=== PATIENT | female | born 1940 | race Caucasian/White ===

== ENCOUNTER 2019-08-04 10:19 | Outpatient (CLI) | payer MEDICARE, SELFPAY ==
--- NOTE | 2019-08-04 10:31 | USCV_ITS ---
Breana Mendez Age: 78 Gender: F : 1940 Exam Date: 08/04/2019 10:40 Ordering Phys: Godwin Diaz DO Technologist: ALTON MURPHY Exam Location: [facility] [place] Indication: DYSPNEA BP: / HR: 62 Rhythm: Sinus Technical Quality: Technically difficult study MEASUREMENTS (Male / Female) Normal Values 2D ECHO LV Diastolic Diameter PLAX 3.4 cm 4.2 - 5.9 / 3.9 - 5.3 cm LV Systolic Diameter PLAX 1.2 cm IVS Diastolic Thickness 2.1 cm 0.6 - 1.0 / 0.6 - 0.9 cm IVS Systolic Thickness 2.2 cm LVPW Diastolic Thickness 1.4 cm 0.6 - 1.0 / 0.6 - 0.9 cm LVPW Systolic Thickness 2.5 cm LV Ejection Fraction 2D Teich 92.6 % LV Ejection Fraction MOD 2C 50.0 % LV Ejection Fraction 2C AL 52.0 % LA Diameter 4.0 cm LA Width 2.9 cm LA Height 4.3 cm RA Width 2.5 cm RA Height 3.5 cm M-MODE LV Diastolic Diameter MM 5.1 cm 4.2 - 5.9 / 3.9 - 5.3 cm LV Systolic Diameter MM 3.3 cm LV Ejection Fraction MM Teich 62.9 % IVS Diastolic Thickness MM 1.2 cm 0.6 - 1.0 / 0.6 - 0.9 cm IVS Systolic Thickness MM 1.2 cm LVPW Diastolic Thickness MM 1.2 cm 0.6 - 1.0 / 0.6 - 0.9 cm LVPW Systolic Thickness MM 2.2 cm Aortic Annulus Diameter 3.1 cm LA Ao Ratio MM 1.3 MV E Point Septal Separation 0.4 cm DOPPLER AV Peak Velocity 117.0 cm/s LVOT Peak Velocity 91.0 cm/s MV Peak Velocity 111.0 cm/s MV Area PHT 3.1 cm squared Mitral E to A Ratio 0.9 MV E' Velocity 7.0 cm/s Mitral E to MV E' Ratio 12.3 Mitral E to LV E' Lateral Ratio 12.8 Mitral E to LV E' Septal Ratio 11.9 TR Peak Velocity 84.0 cm/s TR Peak Gradient 2.8 mmHg Right Atrial Pressure 3.0 mmHg Pulmonary Artery Systolic Pressu 5.8 mmHg PV Peak Velocity 100.0 cm/s RV Acceleration Time 0.1 s FINDINGS Left Ventricle Normal left ventricular cavity size. Normal left ventricular systolic function. Left ventricular ejection fraction is estimated at 65 %. No diagnostic regional wall motion abnormality could be identified. Normal diastolic function. Right Ventricle Normal right ventricular size and systolic function, RVSP 5.8 mmHg. Right Atrium Normal right atrial size. Right atrial pressure estimated at 3 mmHg. Left Atrium Normal left atrial size. Mitral Valve Structurally normal mitral valve. No mitral valve stenosis. Trace mitral valve regurgitation. Aortic Valve Aortic valve not well visualized. No aortic valve stenosis. No aortic valve regurgitation. Tricuspid Valve Trace tricuspid valve regurgitation. Pulmonic Valve Pulmonic valve not well visualized. Pericardium No pericardial effusion. Aorta Normal-sized aortic root. CONCLUSIONS 1. This is a technically difficult study. 2. Normal left ventricular cavity size and systolic function. Left ventricular ejection fraction is estimated at 65 %. No diagnostic regional wall motion abnormality could be identified. Normal diastolic function. 3. Normal pulmonary artery pressure. 4. No significant valvular abnormality. 5. No prior similar studies to compare. Raysa Laird MD (Electronically Signed) Final Date: 06 Aug 2019 15:23 S
--- NOTE | 2019-08-04 11:03 | XR_ITS ---
WS: [id number] CHEST 2 VIEWS HISTORY: DYSPNEA/SHORTNESS OF BREATH, PALPITATIONS AND EDEMA. COMPARISON: 10/20/2018 Lungs: Mild hyperinflation. No pneumonia. Normal vasculature. Cardiac size: Normal. Mediastinum/Aorta: Large calcified RIGHT paratracheal lymph node. Moderate calcification in the aorti c arch. Bones: Normal. XR/XR chest 2V* [id number] IMPRESSION: 1. Mild emphysema. 2. Moderate atherosclerosis thoracic aorta. 3. No acute cardiopulmonary disease.
== END 2019-08-04 10:20 | disposition home or self-care (01) ==
LOC: RAD 10:22
PROVIDERS: PCP Family Medicine; Visit Provider Family Medicine
DX: R06.02 Shortness of breath (principal); R00.2 Palpitations; R60.9 Edema, unspecified; R06.09 Other forms of dyspnea; J43.9 Emphysema, unspecified; I70.0 Atherosclerosis of aorta
CPT/HCPCS: 71046; 93306

== ENCOUNTER 2020-06-12 14:31 | Outpatient (CLI) | payer MEDICARE, SELFPAY ==
--- NOTE | 2020-06-12 14:47 | XR_ITS ---
WS: [id number] Exam: XR lumbar spine 2-3V* [id number] Date/Time of Exam: 06/12/2020 2:52 PM Reason For Exam: DEGENERATIVE JOINT DISEASE Comparison 01/11/2012. No acute fracture or dislocation. Signs of the limited laminectomy at L4-5 and L5-S1. Facet arthropat hy at all levels. Marked narrowing of the L1-2 and L2-3 intervertebral discs. Spondylosis. Osteopenia . Mild levoscoliosis. DJD of the SI joints. XR/XR lumbar spine 2-3V* [id number] IMPRESSION: 1. Moderately advanced degenerative changes and mild scoliosis. Osteopenia. 2. No acute fracture or malalignment. 3. Status post limited laminectomy at L4-5 and L5-S1.
== END 2020-06-12 14:32 | disposition home or self-care (01) ==
PROVIDERS: PCP Family Medicine; Visit Provider Family Medicine
DX: M99.04 Segmental and somatic dysfunction of sacral region (principal); M47.816 Spondylosis without myelopathy or radiculopathy, lumbar region; M85.88 Other specified disorders of bone density and structure, other site; M96.1 Postlaminectomy syndrome, not elsewhere classified
CPT/HCPCS: 72100

== ENCOUNTER 2020-08-23 10:36 | Outpatient (CLI) | payer MEDICARE, SELFPAY ==
--- NOTE | 2020-08-23 10:50 | XR_ITS ---
WS: [id number] Left shoulder, 2 views, 08/23/2020 Clinical Data: LEFT SHOULDER PAIN Comparison: None. Findings: No fractures or dislocations are seen. The AC joint is normal. The adjacent left clavicle, left scapu la and ribs are normal. The soft tissues are unremarkable. There is osteoarthritic change with irregularity and cyst formation on the left humeral head and also in the adjacent left glenoid fossa. There is a small spur of the lesser tuberosity. Incidentally not ed is a large right calcified peritracheal node. 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
== END 2020-08-23 10:37 | disposition home or self-care (01) ==
PROVIDERS: PCP Family Medicine; Visit Provider Family Medicine
DX: M25.512 Pain in left shoulder (principal); M19.012 Primary osteoarthritis, left shoulder
CPT/HCPCS: 73030

== ENCOUNTER 2020-12-17 07:48 | Outpatient (CLI) | payer MEDICARE, SELFPAY ==
--- NOTE | 2020-12-17 07:54 | MR_ITS ---
WS: [id number] MRI LEFT SHOULDER HISTORY: LT SHOULDER Pain; worsening Function; failed CONSERVATIVE TX COMPARISON: Shoulder radiograph 08/23/2020. TECHNIQUE: Multiplanar sequences of the shoulder joint are submitted. Moderate AC joint hypertrophy with bone and soft tissue encroachment upon the supraspinatus tendon an d muscle. Small amount of fluid in the subacromial and subdeltoid bursa. Mild subacromial impingement . Marked tendinopathy in the distal supraspinatus tendon. There is marked fraying along the bursal and articular surfaces. No definite tear is identified. Distal subscapularis tendon is not visualized. Th ere is a fluid gap within the subscapularis tendon consistent with tear. Subscapularis tendon is also being distorted and displaced by osteophytes and fluid surrounding the humeral head. Very minimal at rophy of the supraspinatus muscle. There is a large amount of fluid in the subscapularis and subacrom ial bursa and also surrounding the humeral head. There are loose bodies and mixed signal within the f luid. Large subchondral cystic changes in the humeral head. Severe narrowing of the glenohumeral join t with osteophytic ridging around the humeral head. Subchondral cystic changes extend into the glenoi d. Humeral head is slightly high riding. Biceps tendon is not identified in the bicipital groove. The re is thickening and increased signal in the biceps tendon. Labrum is diffusely abnormal with intrasu bstance degeneration and fraying and tears. Most significant abnormality in the anterior and posterio r labrum. MR/MR shoulder LT wo con* [id number] IMPRESSION: 1. Severe glenohumeral joint osteoarthritis with loss of joint space and carti jo and high riding humeral head. Extensive degenerative subchondral cystic ch anges on both sides of the glenohumeral joint. 2. Suspect complete tear of the distal subscapularis tendon and marked tendino jorge alberto in the supraspinatus tendon. 3. Subluxed and possibly torn biceps tendon. 4. Moderate AC joint arthritis with mild encroachment upon the supraspinatus.
== END 2020-12-17 07:49 | disposition home or self-care (01) ==
LOC: RADSHAW 07:52
PROVIDERS: PCP Family Medicine; Visit Provider Family Medicine
DX: M25.512 Pain in left shoulder (principal); M19.012 Primary osteoarthritis, left shoulder
CPT/HCPCS: 73221

== ENCOUNTER 2021-03-12 13:15 | Outpatient (CLI) | payer MEDICARE, SELFPAY ==
--- NOTE | 2021-03-12 13:22 | CT_ITS ---
WS: [id number] CT LEFT SHOULDER, NONCONTRAST HISTORY: M19.012 - Primary osteoarthritis, left shoulder Technique: All CT scans at [facility] use at least one of these dose optimization techniques: automated exposure control; mA and/or kV adjustment per patient size (includes targeted exams where dose is matched to clinical indication); or iterative reconstruction. DLP: 1908.99 mGy.cm COMPARISON: Radiographs 08/23/2020. Severe narrowing of the glenohumeral joint space. Subchondral cystic changes and sclerosis on both si jaquan of the joint with osteophytic ridging around the humeral head. Small calcific densities within th e soft tissues from chondrocalcinosis most likely. No fractures. There is a large subchondral cyst in the superior humeral head. There is mild soft tissue thickening and synovitis. Cystic changes extend along the subscapularis tendon. Mild narrowing of the AC joint and hypertrophic bone. There is mild subacromial impingement from the acromion. Small amount calcium in the distal rotator cuff. Calcific deposits along the supraspinatus tendon. Mild supraspinatus atrophy. CT/CT shoulder LT wo con* [id number] IMPRESSION: 1. Severe joint space narrowing with subchondral cysts and bone upon bone at t he glenohumeral joint. 2. Chondrocalcinosis. 3. Mild atrophy supraspinatus muscle with calcific tendinitis. 4. Mild subacromial impingement.
== END 2021-03-12 13:16 | disposition home or self-care (01) ==
LOC: RAD 13:18
PROVIDERS: PCP Family Medicine; Visit Provider Orthopaedic Surgery
DX: M19.012 Primary osteoarthritis, left shoulder (principal); M11.212 Other chondrocalcinosis, left shoulder
CPT/HCPCS: 73200

== ENCOUNTER → 2021-03-24 08:30 | Day surgery (SDC) | payer MEDICARE, SELFPAY | PROVIDERS: PCP Family Medicine; Visit Provider Orthopaedic Surgery | DX: Z01.818 Encounter for other preprocedural examination (principal) | CPT/HCPCS: 93005 ==

== ENCOUNTER → 2021-03-24 | Day surgery (SDC) | payer MEDICARE, SELFPAY ==
[2021-03-24 11:37] VITALS: BMI 37.1
[2021-03-24 12:54] LABS: Basophils # 0.1 10^3/uL (0.0-0.1); Basophils % 0.8 %; Eosinophils # 0.3 10^3/uL (0.0-0.8); Eosinophils % 3.5 %; Hematocrit 42.6 % (37.0-47.0); Hemoglobin 13.7 g/dL (11.5-15.3); Lymphocytes # 1.8 10^3/uL (0.8-4.8); Lymphocytes % 23.4 %; Mean Corpuscular HGB Conc 32.2 g/dL (30.0-36.0); Mean Corpuscular Hemoglobin 30.9 pg (28.0-34.0); Mean Corpuscular Volume 95.9 fl (81-99); Mean Platelet Volume 9.8 fL (7.4-10.4); Monocytes # 0.7 10^3/uL (0.2-0.9); Monocytes % 8.7 %; Neutrophils # 4.94 10^3/uL (1.8-7.7); Neutrophils % 63.3 %; Nucleated Red Blood Cells % 0 %; Platelet Count 315 10^3/cmm (130-400); Red Blood Count 4.44 10^6/uL (4.1-5.3); Red Cell Distribution Width 13.2 % (12.1-15.1); White Blood Count 7.8 10^3/uL (4.0-10.0)
--- NOTE | 2021-03-24 13:53 | ANES.PREANE2 ---
Pre-Anesthetic Assessment Pre-Anesthetic Assessment: Height/Weight: Height 1.57 m Weight 92.079 kg Proposed Procedure: Operation Date: 03/31/21 09:10 Proposed Procedures p Total Shoulder Arthroplasty 35664 M19.012(Left) - Norm Holt MD Was Beta Jun taken within 24 hours: N/A Was Clonidine taken within 24 hours: N/A Social: Social History: No alcohol and No tobacco Packs per day: Former smoker for over 20 years (stop ) Exam: Pre-Anes Outpt Exam: alert, oriented x 3, clear to auscultation bilaterally and regular rate & rhythm Airway: Submandibular: WNL Cervical ROM: WNL MP: 2 Dentition: Full Pulmonary: Pulmonary: LONG CV/HEM: CV/HEM: MO ( I was told I had an MO ) Comments: DLD METS < 4 due to pain : : None reported Hepatic: Hepatic: None reported GI: GI: None reported Metabolic: Metabolic: Thyroid Musc/skel: Musc/skel: None reported Neuropsych: Neuropsych: Anxiety Anesthetic Plan: ASA status: 3 (Obese female, former smoker, with LONG and reduced functional capacity due to pain ) Anesthesia: Anesthesia Evaluation, Eval. for regional block, General and Regional (specify below) Other: Patient declines blood products. Will look further into whether or not she would accept albumin. We discussed risk and benefits of general anesthesia and PNB including risk of stroke, MO, , catastrophic bleeding, nerve injury, pneumothorax, awareness, sore throat, PONV. Patient is aware of risk. She is a DNR. In the perioperative period and intraoperative period she declines chest compressions, will accept cardiovascular medications. In the event she is unable to be extubated after the procedure she wishes us to use her living will to guider her. Risk of > 500 ml blood loss (7ml/kg in children): No Other Pertinent Information: Patient states I am a true red head and states she has woken up twice before with recall of pressure but not pain. PFSH Anesthesia PFSH: Social History Smoking and tobacco status: never smoked Data Anesthesia CBC & Chem 7: 03/24/21 12:02 Other Labs: Laboratory Results - last 48 hr 03/24/21 12:02 WBC 7.8 RBC 4.44 Hgb 13.7 Hct 42.6 MCV 95.9 MCH 30.9 MCHC 32.2 RDW 13.2 Plt Count 315 MPV 9.8 Neut % (Auto) 63.3 Lymph % (Auto) 23.4 [place] % (Auto) 8.7 Eos % (Auto) 3.5 Baso % (Auto) 0.8 Neut # (Auto) 4.94 Lymph # (Auto) 1.8 [place] # (Auto) 0.7 Eos # (Auto) 0.3 Baso # (Auto) 0.1 Nucleated RBC % (auto) 0 Nucleated RBCs # 0.0 Cardiac Studies: Echocardiogram Ultrasound 08/04/19
--- NOTE | 2021-03-24 15:38 | ECG_ITS ---
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 Measurements Intervals [place] Rate: 67 P: -6 KS: 295 QRS: -61 QRSD: 89 T: 47 QT: 392 QTc: 416 Interpretive Statements SINUS RHYTHM WITH FIRST DEGREE AV BLOCK LOW QRS VOLTAGE IN PRECORDIAL LEADS [QRS DEFLECTION < 1.0 mV IN CHEST LEADS] LEFT ANTERIOR FASCICULAR BLOCK [QRS AXIS <= -45, QR IN I, RS IN II] POSSIBLE ANTERIOR MYOCARDIAL INFARCTION , PROBABLY OLD [30 ms Q WAVE IN V3/V4, OR R < 0.2 mV IN V4] No previous ECG available for comparison Electronically Signed On 03-24-2021 20:55:49 [employer] by Little Chu M.D. [id number]
== END ==
PROVIDERS: Anesthesiology; PCP Family Medicine; Visit Provider Orthopaedic Surgery
DX: Z01.818 Encounter for other preprocedural examination (principal)
CPT/HCPCS: 85025

== ENCOUNTER → 2021-03-25 10:56 | Outpatient (BNVA) | payer MEDICARE, SELFPAY | PROVIDERS: PCP Family Medicine; Visit Provider Orthopaedic Surgery | DX: M19.012 Primary osteoarthritis, left shoulder (principal) | CPT/HCPCS: 87635 ==

== ENCOUNTER → 2021-08-13 14:21 | Outpatient (BNVA) | payer MEDICARE, SELFPAY | PROVIDERS: PCP Family Medicine; Referring Provider Clinical Nurse Specialist Adult Health; Visit Provider Orthopaedic Surgery | DX: M16.12 Unilateral primary osteoarthritis, left hip (principal); M19.012 Primary osteoarthritis, left shoulder; M25.552 Pain in left hip | CPT/HCPCS: 73502; 99213 ==

== ENCOUNTER 2021-09-15 09:00 | Observation (INO) | payer MEDICARE, SELFPAY ==
[2021-09-10 08:57] VITALS: BMI 37.1
--- NOTE | 2021-09-10 09:06 | ECG_ITS ---
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 Measurements Intervals [place] Rate: 66 P: -62 NE: 282 QRS: -39 QRSD: 98 T: 53 QT: 394 QTc: 416 Interpretive Statements SINUS RHYTHM WITH FIRST DEGREE AV BLOCK LEFT AXIS DEVIATION [QRS AXIS < -30] LOW QRS VOLTAGE IN PRECORDIAL LEADS [QRS DEFLECTION < 1.0 mV IN CHEST LEADS] INCOMPLETE RIGHT BUNDLE BRANCH BLOCK [90+ ms QRS DURATION, TERMINAL R IN V1/V2, 40+ ms S IN I/aVL/V4/V5/V6] POSSIBLE ANTERIOR MYOCARDIAL INFARCTION , PROBABLY OLD [30 ms Q WAVE IN V3/V4, OR R < 0.2 mV IN V4] Compared to ECG 03/24/2021 11:58:54 Left-axis deviation now present Incomplete right bundle-branch block now present Left anterior fascicular block no longer present Myocardial infarct finding still present Electronically Signed On 09-10-2021 22:29:57 CDT by Raysa Laird M.D. [id number]
[2021-09-10 09:50] LABS: Basophils # 0.1 10^3/uL (0.0-0.1); Eosinophils # 0.3 10^3/uL (0.0-0.8); Eosinophils % 4.6 %; Hematocrit 40.3 % (37.0-47.0); Lymphocytes # 1.9 10^3/uL (0.8-4.8); Lymphocytes % 26.3 %; Mean Corpuscular HGB Conc 32.3 g/dL (30.0-36.0); Mean Corpuscular Hemoglobin 30.3 pg (28.0-34.0); Mean Corpuscular Volume 93.9 fl (81-99); Mean Platelet Volume 9.6 fL (7.4-10.4); Monocytes # 0.6 10^3/uL (0.2-0.9); Monocytes % 8.5 %; Neutrophils # 4.25 10^3/uL (1.8-7.7); Neutrophils % 59.2 %; Nucleated Red Blood Cells % 0 %; Platelet Count 298 10^3/cmm (130-400); Red Blood Count 4.29 10^6/uL (4.1-5.3); Red Cell Distribution Width 13.6 % (12.1-15.1); White Blood Count 7.2 10^3/uL (4.0-10.0)
--- NOTE | 2021-09-10 09:56 | P.ANESASSM_ITS ---
Pre-Anesthetic Assessment Height/Weight: Height 1.57 m Weight 92.079 kg Preop Diagnosis: end stage OA Operation Date: 09/15/21 07:00 Proposed Procedures p Left Total Hip Arthroplasty 29840,M16.12(Left) - Norm Holt MD Familial anesthetic complications: Patient reports hx of waking up during cholecystectomy and hysterectomy Was Beta Jun taken within 24 hours: N/A Was Clonidine taken within 24 hours: N/A Social No alcohol and No tobacco Airway Submandibular: within normal limits Cervical ROM: within normal limits Mallampati: Class II Dentition: false Pulmonary Sleep Apnea (Does not use CPAP d/t discomfort ) Denies hx of COPD, asthma, LONG, SOB CV/HEM Arrythmia (Palpitations per patient, domi afib/aflutter hx, 1st degree AV block on EKG ), Hypertension and Myocardial Infarction (Denies hx of cardiac stents) Denies hx of valvular disease None reported Hepatic None reported GI Gastroesophageal Reflux Disease and None reported Metabolic None reported Musc/skel Osteoarthritis/DJD Hx of DJD of left hip, left shoulder Neuropsych Patient reports hx of stroke with no residual sequelae of unknown cause Anesthetic Plan ASA status: 3 Anesthesia: Anesthesia Evaluation and General Other: We discussed risk and benefits of general vs spinal anesthesia including DVT risk, infection, paralysis/catastrophic nerve injury, back bruising/pain, PDPH, conversion to general in case of spinal, PONV, sore throat (sometimes severe), corneal abrasion, positioning and peripheral nerve injuries, life threatening allergic reaction, post operative ICU admission requiring prolonged intubation, stroke, heart attack, , post operative delirium and/or post operative cognitive decline, and rare incidences of recall (under general anesthesia). Patient would prefer general anesthesia over spinal. She states I have enough problems with my back and don't need any more. Patient consents to general anesthesia. Risk of > 500 ml blood loss (7ml/kg in children): No Medications/Allergies Home Medications Medication Instructions Recorded Confirmed Last Taken Type atorvastatin 20 mg tablet 20 mg PO BEDTIME 01/28/21 09/10/21 Unknown History naproxen 500 mg tablet 500 mg PO BID PRN 01/28/21 09/10/21 Unknown History nitroglycerin 0.4 mg sublingual 0.4 mg SUBLINGUAL Q5M PRN 01/28/21 09/10/21 Unknown History tablet (Nitrostat) levothyroxine 125 mcg tablet 125 mcg PO DAILY 03/24/21 09/10/21 Unknown History (Euthyrox) acetaminophen 650 mg 1,300 mg PO DAILY 09/10/21 09/10/21 Unknown History tablet,extended release amoxicillin 500 mg capsule 500 mg PO BID 09/10/21 09/10/21 Unknown History bilberry fruit 1,000 mg capsule 1 g PO DAILY 09/10/21 09/10/21 Unknown History cholecalciferol (vitamin D3) 125 125 mcg PO DAILY 09/10/21 09/10/21 Unknown History mcg (5,000 unit) tablet (Vitamin D3) docusate sodium 100 mg tablet 100 mg PO BID 09/10/21 09/10/21 Unknown History glucosamine sulf dipot 1 cap PO BID 09/10/21 09/10/21 Unknown History chlr,msm,chond 550 mg-C 30 mg-matthias 1 mg capsule (Glucosamine Chondroitin) [id number] 1 tab PO DAILY 09/10/21 09/10/21 Unknown History tablet (Multivitamin 50 Plus) Allergies Allergy/AdvReac Type Severity Reaction Status Date / Time Sulfa (Sulfonamide Allergy Unknown Unknown Verified 08/13/21 14:32 Antibiotics) Tetanus Vaccines and Toxoid Allergy Unknown Unknown Verified 08/13/21 14:32 [facility] Anesthesia Medical History (Updated 09/10/21 @ 09:58 by Sindey Harrington DO) Myocardial infarction MANOLO (obstructive sleep apnea) Surgical History (Updated 09/10/21 @ 10:00 by Sidney Harrington DO) H/O: hysterectomy Reports waking up during surgery History of cholecystectomy Open incision Reports waking up during surgery Social History (Updated 09/10/21 @ 10:01 by Sidney Harrington DO) Smoking and tobacco status: former smoker Data Anesthesia : 09/10/21 09:23 09/10/21 09:23 Short CBC 09/10/21 Range/Units 09:23 WBC 7.2 (4.0-10.0) 10^3/uL Hgb 13.0 (11.5-15.3) g/dL Hct 40.3 (37.0-47.0) % MCV 93.9 (81-99) fl Plt Count 298 (130-400) 10^3/cmm Neut % (Auto) 59.2 % Neut # (Auto) 4.25 (1.8-7.7) 10^3/uL Cardiac Studies: Echocardiogram Ultrasound 08/04/19
[2021-09-10 10:12] LABS: Anion Gap 13.1 (5-19); Blood Urea Nitrogen 20 mg/dL (8-23); Calcium 9.8 mg/dL (8.5-10.5); Carbon Dioxide 26 mmol/L (22-29); Chloride 102 mmol/L (98-107); Creatinine Clr Calc Pharmacy 58.2398; Glucose 106 mg/dL (65-115); Osmolality Calculated 287 mOsm/kg (285-295); Potassium 4.1 mmol/L (3.5-5.1); Sodium 137 mmol/L (136-145)
[2021-09-15] VITALS (26 sets, daily range): BP systolic 103–218; BP diastolic 48–96; PULSE 51–98; RESP 13–18; TEMP 36–36.7; O2SAT 91–97; BMI 37.1
--- NOTE | 2021-09-15 06:39 | P.ANESUD_ITS ---
Pre-Anesthetic Update Pre-Anesthetic Assessment: Date of Surgery/Procedure: 09/15/21 Preop Keri gnosis: Osteoarthritis Left shoulder Proposed Procedure: Operation Date: 09/15/21 07:00 Proposed Procedures p Left Total Hip Arthroplasty 73651,M16.12(Left) - Norm Holt MD Any changes to Pre-Anesthetic Assessment?: No Last Intake: > 8hrs Vitals: Temperature 96.8 F L 09/15/21 06:29 Temperature Source Temporal Artery S can 09/15/21 06:29 Pulse Rate 70 09/15/21 06:29 Respiratory Rate 18 09/15/21 06:29 Blood Pressure 218/96 09/15/21 06:29 Blood Pressure Yani n 136 09/15/21 06:29 Pulse Oximetry 96 09/15/21 06:29 Oxygen Delivery Me thod 09/15/21 06:29 Exam: Pre-Anes Outpt Exam: alert, oriented x 3, clear to auscultation bilaterally and regular rate & rhythm Cardiac Studies: 2 Echocardiogram Ultrasound 08/04/19
[2021-09-15] MEDS: acetaminophen 500 mg Tablet 1000 MG PO ×3 (06:52→18:27)
[2021-09-15] MEDS: CELEcoxib 200 mg Capsule 400 MG PO (06:52)
[2021-09-15] MEDS: oxyCODONE 20 mg ER (12 HR) Tablet PO (06:53)
[2021-09-15] MEDS: sodium chloride 0.9% 1,000 ML 30 ML IV (07:00)
--- NOTE | 2021-09-15 07:05 | W.PM.OPSFHP ---
Same Day Surgery H&P Indication for Procedure/HPI DATE OF PROCEDURE: September 15, 2021 CHIEF COMPLAINT/INDICATIONFOR SURGICAL PROCEDURE: Osteoarthritis left hip here for left total hip arthroplasty PREOP DIAGNOSIS: Osteoarthritis Left hip PLANNED PROCEDURE: Operation Date: 09/15/21 07:00 Proposed Procedures p Left Total Hip Arthroplasty 99367,M16.12(Left) - Norm Holt MD 80-year-old female with left hip pain attributed to osteoarthritis. Unsuccessfully medically managed with anti-inflammatories. Here for elective left total hip arthroplasty Medications/Allergies* Home Medications Medication Instructions Recorded Confirmed Type atorvastatin 20 mg tablet 20 mg PO BEDTIME 01/28/21 09/15/21 History naproxen 500 mg tablet 500 mg PO BID PRN 01/28/21 09/15/21 History nitroglycerin 0.4 mg sublingual 0.4 mg SUBLINGUAL Q5M PRN 01/28/21 09/15/21 History tablet (Nitrostat) levothyroxine 125 mcg tablet 125 mcg PO DAILY 03/24/21 09/15/21 History (Euthyrox) acetaminophen 650 mg 1,300 mg PO DAILY 09/10/21 09/15/21 History tablet,extended release amoxicillin 500 mg capsule 500 mg PO BID 09/10/21 09/15/21 History bilberry fruit 1,000 mg capsule 1 g PO DAILY 09/10/21 09/15/21 History cholecalciferol (vitamin D3) 125 125 mcg PO DAILY 09/10/21 09/15/21 History mcg (5,000 unit) tablet (Vitamin D3) docusate sodium 100 mg tablet 100 mg PO BID 09/10/21 09/15/21 History glucosamine sulf dipot 1 cap PO BID 09/10/21 09/15/21 History chlr,msm,chond 550 mg-C 30 mg-matthias 1 mg capsule (Glucosamine Chondroitin) [id number]-[id number] 1 tab PO DAILY 09/10/21 09/15/21 History tablet (Multivitamin 50 Plus) Allergies/Adverse Reactions Allergy/AdvReac Type Severity Reaction Status Date / Time Sulfa (Sulfonamide Allergy Unknown Unknown Verified 09/15/21 06:29 Antibiotics) Tetanus Vaccines and Toxoid Allergy Unknown Unknown Verified 09/15/21 06:29 Current Medications: Generic Name Dose Route Start Last Admin Trade Name Freq PRN Reason Stop Dose Admin Sodium Chloride 1,000 mls @ 30 mls/hr 09/15/21 06:15 09/15/21 07:00 Sodium Chloride 0.9% IV 09/16/21 06:14 30 mls/hr .Q24H CRISTAL Administration Pertinent History/Comorbid Conditions* Medical History (Updated 09/10/21 @ 09:58 by Sidney Harrington DO) Myocardial infarction MANOLO (obstructive sleep apnea) Surgical History (Updated 09/10/21 @ 10:00 by Sidney Harrington DO) H/O: hysterectomy Reports waking up during surgery History of cholecystectomy Open incision Reports waking up during surgery Social History Smoking and tobacco status: never smoked Pertinent Exam Findings alert, oriented x 3, clear to auscultation bilaterally, regular rate & rhythm and operative site marked Recommendations Surgery/Procedure today Coding Level of Care Code 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
[2021-09-15] MEDS: tranexamic acid 1,000 mg/10mL SDV 1000 MG IV (07:25)
[2021-09-15] MEDS: sodium chloride 0.9% 100 mL Bag XX (08:02)
--- NOTE | 2021-09-15 09:44 | XR_ITS ---
WS: [id number] XR hip LT 1V wo/w [place] [id number] REASON FOR EXAM: Left total hip FINDINGS: Total left hip arthroplasty. No bony abnormality. No significant soft tissue abnormality. XR/XR hip LT 1V wo/w pel [id number] IMPRESSION: Total left hip arthroplasty without abnormality.
--- NOTE | 2021-09-15 09:49 | P.OP_ITS ---
Operative Report Date of procedure: September 15, 2021 Pre-op diagnosis: Preop Diagnosis Osteoarthritis Left hip Post-op diagnosis: same Post-op diagnosis: Same Procedure done: Left total hip arthroplasty Implants: 1) [employer] 54 mm Trident 2 solid back acetabular shell 2) Size 4 [employer] 127 degree neck angle Accolade cemented stem 3} 28mm -4 mm standard ceramic femoral head 4} MDM metal liner Pathology: none sent Surgeon: Norm Holt Anesthesia: General Estimated blood loss (mL): 200 Findings: Patient had eburnated bone over the superior femoral head and acetabulum Condition: stable Disposition: PACU Procedure: The patient was taken to the operating room and anesthesia provided by the anesthesia service. The patient was placed in the lateral position on a pe gboard. A timeout was performed. The patient was draped in the usual fashion. A 15 cm long incision was made beginning just proximal to the greater trochanter and extending posteriorly to a point just distal to the trochanter on the posterior border of the trochanter. Dissection was carried down with electrocautery through the subcutaneous fat to the fascia juanjose which was divided proximally and distally with curved scissors. The anterior two thirds of the gluteus medius and minimus were elevated off the hip with electrocautery. The capsule was divided in a H-like fashion. The hip was dislocated and a neck cut made just above the level of the lesser trochanter. Exposure of the acetabulum was facilitated with the acetabular retractors. Remnants of labrum and peripheral osteophytes were removed with electrocautery and a rongeur. A reamer 2 mm under the size the femoral head was utilized to ream medially to the base of the palm and are. Reaming was then increased in 1 mm intervals until a healthy rim a trabecular bone was encountered. The rim was touched with the reamer the size of the final acetabular shell to be placed. A final Trident 2 acetabular cup of the same size as the final reaming was press- fit into place. The ADM liner was secured. Attention was then focused on the femur. The canal was localized with a canal finder. Broaching was then accomplished until we feel was identified in the proximal femur. The canal was cleaned with pulsatile lavage. A distal cement restrictor was placed. The stem was then press-fit into place. A trial reduction with the head and neck provided excellent stability. The wound was irrigated with saline and antibiotic solution. The final Wendy Accolade II cemented stem was press-fit into place. The femoral head was placed and the hip was reduced. The hip was brought through range of motion and found to be free of impingement and stable. The anterior capsule was reapproximated with 1 Ethibond. The gluteus medius and minimus were repaired through bone with 5 Ethibond and reinforced with 1 Ethibond. The fascial juanjose was closed with a running 0 Stratafix suture. Deep pelvic tissues were closed with 2-0 Stratafix and the skin with a running 4-0 l Stratafix. The skin was covered with a Prineo dressing and op site dressings.
[2021-09-15] MEDS: fentaNYL 50 mcg/mL INJ 2mL IVP ×2 (09:55→10:08)
[2021-09-15] MEDS: HYDROmorphone 1 mg/mL INJ 1 mL 0.5 MG IVP (10:22)
[2021-09-15] MEDS: oxyCODONE 5 mg IR Tab/Cap PO ×3 (11:36→20:06)
[2021-09-15] MEDS: sodium chloride 0.9% 1,000 ML 100 ML IV ×2 (11:37→23:54)
[2021-09-15] MEDS: CELEcoxib 200 mg Capsule PO ×2 (11:37→22:24)
--- NOTE | 2021-09-15 15:58 | ANE.PACU2 ---
Inpatient post-anesthesia follow up: Airway intact: Yes Vital signs: Temperature 98.0 F Pulse Rate 72 Respiratory Rate 16 Blood Pressure 169/81 Pulse Oximetry 94 Oxygen Delivery Me thod Nasal Cannula Oxygen Flow Rate 2 Fraction of Inspir ed Oxygen Hydration adequate: Yes Nausea and vomiting: No Pain level: 2 Mental status: Baseline
[2021-09-15] MEDS: docusate sodium 100 mg Capsule PO (18:27)
[2021-09-15] MEDS: atorvastatin 40 mg Tablet 20 MG PO (20:06)
[2021-09-16] VITALS (9 sets, daily range): BP systolic 115–172; BP diastolic 66–87; PULSE 58–83; RESP 16–18; TEMP 36.5–36.8; O2SAT 91–95
[2021-09-16] MEDS: acetaminophen 500 mg Tablet 1000 MG PO ×3 (03:13→18:45)
[2021-09-16 03:42] LABS: Hemoglobin 11.2 g/dL (11.5-15.3)
[2021-09-16] MEDS: aspirin 325 mg EC Tablet PO (08:53)
[2021-09-16] MEDS: oxyCODONE 5 mg IR Tab/Cap PO ×3 (08:53→18:45)
[2021-09-16] MEDS: docusate sodium 100 mg Capsule PO ×2 (08:53→17:32)
[2021-09-16] MEDS: sodium chloride 0.9% 1,000 ML 100 ML IV (08:54)
[2021-09-16] MEDS: levothyroxine 125 mcg Tablet PO (08:54)
[2021-09-16] MEDS: CELEcoxib 200 mg Capsule PO ×2 (11:11→23:12)
--- NOTE | 2021-09-16 12:02 | PC.CHAP ---
Pastoral Care Encounter/Spiritual Assessment Type of Contact [] Declined technical assistance consultant visit [] Patient/Family/Request visit [] Outpatient visit [] Follow-up visit [] Physician referral [] Code/Alert [x] Routine visit [] Staff referral [] Actively dying [] Patient sleeping [] Family support [] [] Out of room [] Palliative care [] [] Receiving care in room [] Pre-surgical visit [] Trauma [] Long length of stay [] ICU visit [] Other: Relational/Emotional Strength [x] Patient feels connected with others/family/visitors/staff [] Distress [] Loneliness/isolation [] Abandonment Spirituality of Patient [x] Person of [place] [x] Attends Taoist of their [place] [x] Believes in Prayer [x] Reads Bible or Christian materials [] There are Spiritual issues to be addressed Inserting Machine Operator Interventions [x] Prayer [x] Active listening x[] Non-anxious presence [x] Spiritual/emotional support [] Crisis/trauma care [] Spiritual counseling [] Bereavement support [] Provided bereavement packet [] Provided Bible/devotional materials [] Provided toy/stuffed animal, coloring book to patient or family member [] Provided Communion [] Anointing/[place] [] Salvation [x] Completed spiritual assessment [] Other: Impact on Illness or Injury [] Angry [] Fearful [] Anxious [] Often cries [] Exhaustion [] Unable to work [] Unable to attend religious [] Unable to walk/stand [] Unable to read [] Unable to drive [] Unable to eat/drink [] Unable to sleep [] Unable to be with family [] Patient intubated [] Other: Summary Time spent with patient 10 min
--- NOTE | 2021-09-16 16:57 | P.PN_ITS ---
Subjective Subjective: Patient with expected pain. Passing urine. Slow progress with therapy. Vitals/I&O/Wt Last Vital Signs Temp 97.7 F 09/16/21 16:00 Pulse 62 09/16/21 16:00 Resp 16 09/16/21 16:00 BP 172/87 09/16/21 16:00 Pulse Ox 94 09/16/21 16:00 09/16/21 09/16/21 09/16/21 06:59 14:59 22:59 Intake Total 50 / 3730 1380 / 1380 1000 / 2380 Output Total 425 / 1025 250 / 250 Balance -375 / 2705 1130 / 1130 1000 / 2130 Weight last 48 hrs Weight 203 lb Physical Exam Narrative: Left hip incision clean and dry. Minimal swelling Urinary Catheter Management: Ferguson: Cath Placed During This Visit: yes, but has since been removed by the nurse Reason for Continuing Indwelling Catheter: Perioperative Use in Selected Surgeries Urinary Catheter Date of Insertion: 09/15/21 Urinary Catheter Time of Insertion: 07:20 Date Urinary Catheter Removed: 09/16/21 Time Urinary Catheter Discontinued: 06:30 Data : 09/16/21 02:40 09/10/21 09:23 A&P Assessment and plan (1) Status post left hip replacement: Breana has progressed slowly with therapy. We will plan on 1 more day of therapy anticipate discharge tomorrow Status: Acute (2) Osteoarthritis of left hip: Status: Resolved Attestations Medical Necessity Statement*: Slow progress with therapy. Anticipate discharge tomorrow Coding Level of Care Code Acute Continuous Wave Operator for [facility] Diagnoses Status post left hip replacement Z96.642 Osteoarthritis of left hip M16.12
[2021-09-16] MEDS: atorvastatin 40 mg Tablet 20 MG PO (20:18)
[2021-09-17] VITALS: BP 128/69; PULSE 67; RESP 18; TEMP 37; O2SAT 93
[2021-09-17 02:42] VITALS: RESP 18
[2021-09-17] MEDS: acetaminophen 500 mg Tablet 1000 MG PO (02:42)
[2021-09-17] MEDS: oxyCODONE 5 mg IR Tab/Cap PO ×2 (02:42→07:41)
[2021-09-17 04:00] VITALS: BP 144/74; PULSE 74; RESP 18; TEMP 37; O2SAT 98
[2021-09-17] MEDS: aspirin 325 mg EC Tablet PO (07:40)
[2021-09-17 07:41] VITALS: RESP 16
[2021-09-17] MEDS: levothyroxine 125 mcg Tablet PO (07:41)
[2021-09-17] MEDS: docusate sodium 100 mg Capsule PO (07:41)
[2021-09-17 08:16] VITALS: BP 173/77; PULSE 69; RESP 17; TEMP 36.6; O2SAT 90
--- NOTE | 2021-09-17 10:08 | PM.DCS ---
Discharge Providers Date of Admission: 09/15/21 09:00 Date of Discharge: September 17, 2021 Attending Provider at Admission: Norm Bourne MD Attending Provider at Discharge: Norm Bourne MD Primary Care Provider: Godwin Diaz DO Diagnoses at Discharge Discharge Diagnosis (1) Status post left hip replacement: Status: Acute (2) Osteoarthritis of left hip: Status: Resolved Reason for Visit Reason for Visit: Brief History: Breana is an 80-year-old female with progressive left hip pain due to osteoarthritis in the left hip. She was admitted for left total hip arthroplasty Hospital Course Hospital Course The patient tolerated surgery well. They remained hemodynamically stable. They was begun on aspirin and nitro compressing dressing for DVT prophylaxis. She was slow to regain ambulatory status with therapy the patient was mobilized with therapy beginning the day of surgery and by the second postoperative day independent with the walker. As the pain was adequately controlled and they were fully mobile they were discharged home. Physical Exam Narrative: On the day of discharge the hip incision was clean. The incision was free of drainage. They had no particular swelling about the thigh or distal. No distal neurovascular deficits were noted. Urinary Catheter Management: Ferguson: Cath Placed During This Visit: yes, but has since been removed by the nurse Reason for Continuing Indwelling Catheter: Not indwelling catheter Urinary Catheter Date of Insertion: 09/15/21 Urinary Catheter Time of Insertion: 07:20 Date Urinary Catheter Removed: 09/16/21 Time Urinary Catheter Discontinued: 06:30 Discharge Data Studies Completed and Pending Completed Studies During Hospitalization Category Date Time Status XR hip LT 1V wo/w pel 14052 Routine Exams 09/15/21 09:44 Completed Radiology Impressions Hip X-Ray 09/15/21 09:44 IMPRESSION: Total left hip arthroplasty without abnormality. Laboratory Results WBC 7.2 10^3/uL (4.0-10.0) 09/10/21 09:23 RBC 4.29 10^6/uL (4.1-5.3) 09/10/21 09:23 Hgb 11.2 g/dL (11.5-15.3) L 09/16/21 02:40 Hct 40.3 % (37.0-47.0) 09/10/21 09:23 MCV 93.9 fl (81-99) 09/10/21 09:23 MCH 30.3 pg (28.0-34.0) 09/10/21 09: MCHC 32.3 g/dL (30.0-36.0) 09/10/21: RDW 13.6 % (12.1-15.1) 09/10/21 09: Plt Count 298 10^3/cmm (130-400) 09/10/21 09: MPV 9.6 fL (7.4-10.4) 09/10/21: Neut % (Auto) 59.2 % 09/10/21 09: Lymph % (Auto) 26.3 % 09/10/21 09: Coos % (Auto) 8.5 % 09/10/21 09: Eos % (Auto) 4.6 % 09/10/21: Baso % (Auto) 1.0 % 09/10/21: Neut # (Auto) 4.25 10^3/uL (1.8-7.7) 09/10/21: Lymph # (Auto) 1.9 10^3/uL (0.8-4.8) 09/10/21: Coos # (Auto) 0.6 10^3/uL (0.2-0.9) 09/10/21: Eos # (Auto) 0.3 10^3/uL (0.0-0.8) 09/10/21: Baso # (Auto) 0.1 10^3/uL (0.0-0.1) 09/10/21: Nucleated RBC % (auto) 0 % 09/10/21: Nucleated RBCs # 0.0 /100WBC 09/10/21 09: Sodium 137 mmol/L (136-145) 09/10/21 09: Potassium 4.1 mmol/L (3.5-5.1) 09/10/21: Chloride 102 mmol/L (98-107) 09/10/21 09: Carbon Dioxide 26 mmol/L (22-29) 09/10/21: Anion Gap 13.1 (5-19) 09/10/21 09: BUN 20 mg/dL (8-23) 09/10/21 09: Creatinine 0.8 mg/dL (0.5-0.9) 09/10/21 09:23 GFR Calculation Not Reportable 09/10/21 09:23 Glucose 106 mg/dL (65-115) 09/10/21 09:23 Calculated Osmolality 287 mOsm/kg (285-295) 09/10/21 09:23 Calcium 9.8 mg/dL (8.5-10.5) 09/10/21 09:23 Vitals Last Vital Signs Temp 97.9 F 09/17/21 08:16 Pulse 69 09/17/21 08:16 Resp 17 09/17/21 08:16 BP 173/77 09/17/21 08:16 Pulse Ox 90 09/17/21 08:16 Discharge Plan Discharge Patient Disposition: Home Condition: Stable Prescriptions: New oxycodone 5 mg Tablet 5 mg PO Q4H PRN (Reason: Moderate Pain) 7 Days Qty: 30 0RF aspirin 325 mg Tablet,Delayed Release (Dr/Ec) 325 mg PO DAILY 30 Days Qty: 30 0RF celecoxib 200 mg Capsule 200 mg PO Q12H 14 Days Qty: 28 0RF acetaminophen 500 mg Tablet 1,000 mg PO Q8H 14 Days Qty: 84 0RF Continued atorvastatin 20 mg tablet 20 mg PO BEDTIME 0RF nitroglycerin [Nitrostat] 0.4 mg tablet, sublingual 0.4 mg sublingual Q5M PRN (Reason: chest pain) 0RF Rx Instructions: do not exceed 3 doses per episode levothyroxine [Euthyrox] 125 mcg tablet 125 mcg PO DAILY 0RF amoxicillin 500 mg Capsule 500 mg PO BID 0RF docusate sodium 100 mg Tablet 100 mg PO BID 0RF Multivitamin 50 Plus Tablet 1 tab PO DAILY 0RF bilberry fruit 1,000 mg Capsule 1 g PO DAILY 0RF cholecalciferol (vitamin D3) [Vitamin D3] 125 mcg (5,000 unit) Tablet 125 mcg PO DAILY 0RF Glucosamine Chondroitin 550-30-1 mg Capsule 1 cap PO BID 0RF Discontinued naproxen 500 mg tablet 500 mg PO BID PRN (Reason: Pain) 0RF acetaminophen [Tylenol Arthritis] 650 mg Tablet Extended Release 1,300 mg PO DAILY 0RF Discharge Orders: Discharge Order (Routine); Ordered 09/17/21 Ordered By: Norm Bourne Other Ambulatory Orders: Physical Therapy Eval and Treat Outpatient (Order) Timeframe: 3 Days Facility: [facility] - Location: Physical Therapy Ordered By: Norm Bourne Referrals: Simeon Hsu FNP [Physician Underliner] - 09/19/21 9:15 am Discharge Diet: Advance as tolerated Discharge Activity: Limit activity as instructed Patient Instructions: Opioid Safety Activity Restrictions/Additional Instructions: Okay to shower. No soaking incision in tub Apply FirstIce up to 20 min/hr for pain and swelling Take Celebrex twice a day for the next 15 days for pain , discontinue other anti-inflammatories Take Tylenol 500mg (up to 2 tabs) 3 times a day for mild pain Take oxycodone for breakthrough pain. Exercises per physical therapy. May weight-bear as tolerated on total hip arthroplasty IF HAVE ANY PROBLEMS OR QUESTIONS CALL [facility] AT AND ASK TO HAVE DR. BOURNE PAGED. Discharge Attestations Time Spent in Discharge Care*: other Quality Metrics Clinical Quality Measures [ No reported AMI, CVA or VTE this stay] Coding Level of Care Code Acute [facility] note Diagnoses Status post left hip replacement Z96.642 Osteoarthritis of left hip M16.12
[2021-09-17 10:40] VITALS: BP 173/77; PULSE 69; RESP 17; TEMP 36.6; O2SAT 90
== END 2021-09-17 11:07 | disposition home or self-care (01) ==
LOC: MEDSURG 09-16 02:25
PROVIDERS: Anesthesiology; Admitting Provider Orthopaedic Surgery; PCP Family Medicine; Visit Provider Orthopaedic Surgery
PROC: (CPT 27130; principal; 2021-09-15 07:00)
DX: M16.12 Unilateral primary osteoarthritis, left hip (principal); G47.33 Obstructive sleep apnea (adult) (pediatric); I25.2 Old myocardial infarction; K21.9 Gastro-esophageal reflux disease without esophagitis; Z87.891 Personal history of nicotine dependence
CPT/HCPCS: 27130; 36415; 51702; 73501; 80048; 85018; 85025; 93005; 97110; 97116; 97161; 97166; 97530; C1713; C1776; G0378; J1100; J1170; J1580; J2270; J2370; J2405; J2704; J2710; J3010; J3490; J7030

== ENCOUNTER → 2021-09-23 10:49 | Outpatient (BNVA) | payer MEDICARE, SELFPAY | PROVIDERS: PCP Family Medicine; Visit Provider Nurse Practitioner Family | DX: Z96.642 Presence of left artificial hip joint (principal) | CPT/HCPCS: 99024 ==

== ENCOUNTER 2021-09-25 06:00 | Outpatient (RCR) | payer MEDICARE, SELFPAY | END 2021-10-19 23:59 | disposition home or self-care (01) | LOC: SPT 06:00 | PROVIDERS: PCP Family Medicine; Referring Provider Orthopaedic Surgery; Visit Provider Orthopaedic Surgery | DX: Z47.1 Aftercare following joint replacement surgery (principal); Z96.642 Presence of left artificial hip joint | CPT/HCPCS: 97110; 97116; 97161 ==

== ENCOUNTER → 2021-10-01 10:16 | Outpatient (BNVA) | payer MEDICARE, SELFPAY | PROVIDERS: PCP Family Medicine; Visit Provider Nurse Practitioner Family | DX: Z96.642 Presence of left artificial hip joint (principal) | CPT/HCPCS: 73502; 99024 ==

== ENCOUNTER → 2021-10-14 10:47 | Outpatient (BNVA) | payer MEDICARE, SELFPAY | PROVIDERS: PCP Family Medicine; Visit Provider Orthopaedic Surgery | DX: Z96.642 Presence of left artificial hip joint (principal) | CPT/HCPCS: 73502; 99024 ==

== ENCOUNTER 2021-10-20 06:00 | Outpatient (RCR) | payer MEDICARE, SELFPAY | END 2021-11-19 23:59 | disposition home or self-care (01) | LOC: SPT 06:00 | PROVIDERS: PCP Family Medicine; Referring Provider Orthopaedic Surgery; Visit Provider Orthopaedic Surgery | DX: Z96.642 Presence of left artificial hip joint (principal) | CPT/HCPCS: 97110 ==

== ENCOUNTER → 2022-03-20 09:24 | Outpatient (BNVA) | payer MEDICARE, SELFPAY | PROVIDERS: PCP Family Medicine; Visit Provider Clinical Nurse Specialist Adult Health | DX: R19.5 Other fecal abnormalities (principal); B34.9 Viral infection, unspecified | CPT/HCPCS: 80053; 85025 ==

== ENCOUNTER 2022-07-20 10:25 | Outpatient (CLI) | payer MEDICARE, SELFPAY ==
--- NOTE | 2022-07-20 10:41 | XR_ITS ---
WS: [id number] XR cervical spine 3V* [id number] REASON FOR EXAM: M54.2 - Cervicalgia FINDINGS: Straightening of the normal lordosis of the cervical spine. No fracture of the cervical vertebrae or other odontoid identified. Severe narrowing of the intervertebral disc spaces at C4-C7. Large anterior osteophytes and moderate uncinate 8 osteophytes through this same segment. No significant listhesis identified. XR/XR cervical spine 3V* [id number] IMPRESSION: Degenerative spondylosis of the cervical spine as above. The findings have mode rately progressed compared to 04/28/2011.
== END 2022-07-20 10:26 | disposition home or self-care (01) ==
LOC: RAD 10:31
PROVIDERS: PCP Family Medicine; Visit Provider Family Medicine
DX: M19.90 Unspecified osteoarthritis, unspecified site (principal); M54.2 Cervicalgia; M47.892 Other spondylosis, cervical region
CPT/HCPCS: 72040

== ENCOUNTER → 2022-08-04 12:34 | Outpatient (BNVA) | payer MEDICARE, SELFPAY | PROVIDERS: PCP Family Medicine; Visit Provider Internal Medicine | DX: R00.2 Palpitations (principal); I44.0 Atrioventricular block, first degree; R00.0 Tachycardia, unspecified; R00.1 Bradycardia, unspecified | CPT/HCPCS: 93270 ==

== ENCOUNTER → 2022-08-12 10:09 | Outpatient (BNVA) | payer MEDICARE, SELFPAY | PROVIDERS: PCP Family Medicine; Visit Provider Orthopaedic Surgery | DX: M17.11 Unilateral primary osteoarthritis, right knee (principal) | CPT/HCPCS: 20610; 73560; 73565; 99213; J0702; J3490 ==

== ENCOUNTER → 2022-11-10 09:36 | Outpatient (BNVA) | payer MEDICARE, SELFPAY | PROVIDERS: PCP Family Medicine; Visit Provider Family Medicine | DX: F32.A Depression, unspecified (principal); I10 Essential (primary) hypertension; M19.90 Unspecified osteoarthritis, unspecified site; Z13.6 Encounter for screening for cardiovascular disorders | CPT/HCPCS: 80053; 80061; 85025 ==

== ENCOUNTER → 2023-04-09 09:02 | Outpatient (BNVA) | payer MEDICARE, MEDICAID, SELFPAY | PROVIDERS: PCP Family Medicine; Visit Provider Physician Assistant | DX: M17.0 Bilateral primary osteoarthritis of knee (principal) | CPT/HCPCS: 20610; 73560; 73565; 99213; J3301 ==

== ENCOUNTER → 2023-04-19 11:30 | Outpatient (BNVA) | payer MEDICARE, MEDICAID, SELFPAY | PROVIDERS: PCP Family Medicine; Visit Provider Family Medicine | DX: I10 Essential (primary) hypertension (principal); M19.90 Unspecified osteoarthritis, unspecified site; E05.90 Thyrotoxicosis, unspecified without thyrotoxic crisis or storm; E03.9 Hypothyroidism, unspecified | CPT/HCPCS: 80053; 84443; 85025 ==

== ENCOUNTER → 2023-08-12 10:01 | Outpatient (BNVA) | payer BC, MEDICAID, SELFPAY | PROVIDERS: PCP Family Medicine; Visit Provider Physician Assistant | DX: M19.012 Primary osteoarthritis, left shoulder (principal) | CPT/HCPCS: 73030 ==

== ENCOUNTER → 2023-10-26 09:08 | Outpatient (BNVA) | payer MEDICARE, MEDICAID, SELFPAY | PROVIDERS: PCP Family Medicine; Visit Provider Physician Assistant | DX: M17.0 Bilateral primary osteoarthritis of knee (principal) | CPT/HCPCS: 20610; 99213 ==

== ENCOUNTER → 2023-11-16 08:25 | Outpatient (BNVA) | payer MEDICARE, MEDICAID, SELFPAY | PROVIDERS: PCP Family Medicine; Visit Provider Physician Assistant | DX: M19.012 Primary osteoarthritis, left shoulder (principal) | CPT/HCPCS: 20610; 73030; 99213; J3301 ==

== ENCOUNTER 2023-11-23 14:14 | Emergency (ER) | payer MEDICARE, MEDICAID, SELFPAY ==
[2023-11-23 14:24] VITALS: BP 106/66; PULSE 84; TEMP 36.7; O2SAT 95; BMI 35.2
[2023-11-23 14:49] LABS: Hematocrit 37.4 % (36-47); Mean Corpuscular HGB Conc 32.1 g/dL (30-55); Mean Corpuscular Hemoglobin 30.8 pg (27-33); Mean Corpuscular Volume 95.9 fl (85-98); Mean Platelet Volume 8.9 fL (7.4-10.4); Platelet Count 391 10^3/cmm (157-399); White Blood Count 11.59 10^3/uL (3.29-11.43)
[2023-11-23 15:09] LABS: Alanine Aminotransferase 21 U/L (0-33); Albumin Level 3.7 g/dL (3.5-5.2); Alkaline Phosphatase 114 U/L (35-105); Aspartate Amino Transferase 15 U/L (0-32); Blood Urea Nitrogen 32 mg/dL (8-23); Calcium 9.5 mg/dL (8.5-10.5); Carbon Dioxide 23 mmol/L (22-29); Chloride 102 mmol/L (98-107); Creatinine Clr Calc Pharmacy 43.6723; Globulin 3.1 g/dL (1.3-4.6); Glucose 91 mg/dL (65-115); Lipase 28 U/L (13-60); Osmolality Calculated 290 mOsm/kg (285-295); Sodium 137 mmol/L (136-145); Total Bilirubin 0.2 mg/dL (0.15-1.2); Total Protein 6.8 g/dL (6.6-8.7)
[2023-11-23 15:10] LABS: INR 0.96 (0.8-1.2)
[2023-11-23 15:13] LABS: Anion Gap 16.2 (5-19); Potassium 4.2 mmol/L (3.5-5.1)
[2023-11-23 15:33] LABS: Absolute Eosinophils 0.6 10^3/cmm (0.0-0.7); Absolute Segmented Neutrophil 7.9 10/cmm (1.6-7.1); Band Neutrophils Absolute 0.2 10^3/cmm (0.0-1.2); Eosinophils 5 %; Lymphocytes 18 %; Lymphocytes Absolute 2.3 10^3/cmm (1.2-3.4); Monocytes Absolute 0.2 10^3/cmm (0.1-0.6); Segmented Neutrophils 68 %; Slide Review Slide Review Perform; Total Cells Counted 100 (0-100)
[2023-11-23 15:34] LABS: Absolute Neutrophil 8.1 10^3/cmm (1.4-6.5); Giant Platelets Trace; Platelet Estimate Normal (Normal)
--- NOTE | 2023-11-23 17:15 | ED_ITS ---
Documented by User: Roberth Vega DO 11/24/23 06:23 HPI - GI Bleed 2 General: Chief complaint: GI Bleed Stated complaint: lower stomach pain, and tar looking stools Time Seen by Provider: 11/23/23 17:10 History of Present Illness: 83-year-old female who presents to the e mergency room with a complaint of abdominal pain with black tarry stools for last couple of days last stool was yesterday. She refers most of her pain to the left mid and left lower abdomen. She denied any bright red blood per rectum she is not on any anticoagulants. She has not had any GI bleeds in the past she does take diclofenac 50 mg twice a day for arthritic pain. She is not on any antiplatelet therapies or anticoagulants. Patient notes that she is a [employer] and declines blood products. Associated symptoms: Denies abdominal pain, chills, fever(s), nausea, rash or vomiting Related Data Home Medications Medication Instructions Recorded Confirmed nitroglycerin 0.4 mg sublingual 0.4 mg sublingual Q5M PRN chest 01/28/21 11/16/23 tablet (Nitrostat) pain bilberry fruit 1,000 mg capsule 1 g PO DAILY 09/10/21 11/16/23 cholecalciferol (vitamin D3) 125 125 mcg PO DAILY 09/10/21 11/16/23 mcg (5,000 unit) tablet (Vitamin D3) docusate sodium 100 mg tablet 100 mg PO BID 09/10/21 11/16/23 glucosamine sulf dipot 1 cap PO BID 09/10/21 11/16/23 chlr,msm,chond 550 mg-C 30 mg-matthias 1 mg capsule (Glucosamine Chondroitin) [id number] 1 tab PO DAILY 09/10/21 11/16/23 tablet (Multivitamin 50 Plus tablet) Previous Rx's Medication Instructions Recorded losartan 25 mg tablet 25 mg PO DAILY #90 tabs 01/04/23 benzonatate 100 mg capsule 100 mg PO BID PRN cough #14 caps 05/11/23 prednisone 20 mg tablet 20 mg PO DAILY 5 days #5 tabs 05/11/23 prednisone 10 mg tablet 10 mg PO DAILY sinus and throat 06/03/23 inflammation #10 tabs duloxetine 30 mg capsule,delayed 30 mg PO DAILY #30 caps 07/12/23 release diclofenac potassium 50 mg tablet 50 mg PO BID for inflammatory pain 08/09/23 #60 tabs levothyroxine 125 mcg tablet See Rx Instructions .Route 09/20/23 .COMPLEX #90 tabs atorvastatin 20 mg tablet See Rx Instructions .Route 11/08/23 .COMPLEX #90 tabs ciprofloxacin HCl 500 mg tablet 500 mg PO Q12H #20 tabs 11/23/23 metronidazole 500 mg tablet 500 mg PO Q8H #30 tabs 11/23/23 Allergies Allergy/AdvReac Type Severity Reaction Status Date / Time Sulfa (Sulfonamide Allergy Unknown Unknown Verified 11/23/23 14:31 Antibiotics) Tetanus Vaccines and Toxoid Allergy Unknown Unknown Verified 11/23/23 14:31 Iodinated Contrast Media Allergy Unknown Verified 11/23/23 14:31 Review of Systems 2 Const: Denies: fever(s) or chills Card: Denies: chest pain Resp: Denies: dyspnea GI: Reports: melena; Denies: abdominal pain, nausea or vomiting : Denies: dysuria, urinary frequency or urinary urgency Musc: Denies: neck pain or back pain Skin/Breast: Denies: rash PFSH ED 2 PFSH: Medical History Hypertension Hyperthyroidism Myocardial infarction MANOLO (obstructive sleep apnea) Surgical History History of cholecystectomy Open incision Reports waking up during surgery H/O: hysterectomy Reports waking up during surgery Social History Smoking and tobacco/nicotine status: never used tobacco/nicotine Second hand smoke exposure: No Alcohol intake: never Substance/Drug Use: never Physical Exam 2 Const: GENERAL APPEARANCE: cooperative ORIENTATION/CONSCIOUSNESS: Yes awake, Yes oriented to person, Yes oriented to place and Yes oriented to time HENMT: COMMON NORMALS: normocephalic, atraumatic and hearing grossly normal bilaterally HEAD & SCALP: normocephalic and atraumatic Resp: COMMON NORMALS: normal respiratory effort, No retractions, No use of accessory muscles and clear to auscultation bilaterally AUSCULTATION: clear to auscultation bilaterally Cardio: COMMON NORMALS: regular rate, regular rhythm and No murmurs present (Cardio) RATE: regular rate RHYTHM: regular rhythm GI: COMMON NORMALS: Soft to palpation and No hepatosplenomegaly present A USCULTATION: Yes normoactive bowel sounds PALPATION: Yes Soft to palpation, No Tenderness to palpation present (GI), No Guarding due to palpation present (GI) and Yes No hepatosplenomegaly present Extremity: COMMON NORMALS: normal to inspection, capillary refill normal, no clubbing, cyanosis or edema, no calf tenderness and no pedal edema Neuro: SENSORIUM/ORIENTATION: Yes oriented to person, Yes oriented to place and Yes oriented to time Skin: COMMON NORMALS: no rashes or lesions noted GENERAL SKIN EXAM: no rashes or lesions noted Course 2 Vital Signs: Vital signs: Vital Signs Temperature 98.0 F 11/23/23 14:24 Pulse Rate 86 11/23/23 20:48 Respiratory Rate 16 11/23/23 20:48 Blood Pressure 183/99 11/23/23 20:48 Pulse Oximetry 98 11/23/23 20:48 Oxygen Delivery Me thod Room Air 11/23/23 19:41 MDM - GI Bleed Medical Decision Making Care signed out to Dr. Sanches at change of shift. See final notes for diagnosis and disposition. Care transitioned over myself at shift change, once lab work and CT was resulted when discussed these results with the patient. Patient is having symptomatology consistent with diverticulitis with minor bleeding. Patient be placed on Cipro and metronidazole and discharged home. Patient agreeable previous plan. Lab Data 11/23/23 14:38 11/23/23 14:38 Radiology Impressions Abdomen/Pelvis CT 11/23/23 17:23 IMPRESSION: Limited evaluation of the pelvis secondary to beam hardening artifact from left hip prosthesis. Severe colonic diverticulosis. Mild pericolonic fat stranding within the sigmoid colon concerning for diverticulitis in the appropriate clinical setting. Laboratory Results WBC 11.59 10^3/uL (3.29-11.43) H 11/23/23 14:38 RBC 3.90 10^6/uL (3.85-5.65) 11/23/23 14:38 Hgb 12.00 g/dL (11.27-16.99) 11/23/23 14:38 Hct 37.4 % (36-47) 11/23/23 14:38 MCV 95.9 fl (85-98) 11/23/23 14:38 MCH 30.8 pg (27-33) 11/23/23 14:38 MCHC 32.1 g/dL (30-55) 11/23/23 14:38 RDW 14.0 % (12.1-15.1) 11/23/23 14:38 Plt Count 391 10^3/cmm (157-399) 11/23/23 14:38 MPV 8.9 fL (7.4-10.4) 11/23/23 14:38 Lymph % (Auto) Not Reportable 11/23/23 14:38 Whiteside % (Auto) Not Reportable 11/23/23 14:38 Lymph # (Auto) Not Reportable 11/23/23 14:38 Whiteside # (Auto) Not Reportable 11/23/23 14:38 Total Counted 100 (0-100) 11/23/23 14:38 Atypical Lymphs % 2.0 % (0-5) 11/23/23 14:38 Absolute Neutrophils 8.1 10^3/cmm (1.4-6.5) H 11/23/23 14:38 Segmented Neutrophils 68 % 11/23/23 14:38 Abs Segm Neuts (Man) 7.9 10/cmm (1.6-7.1) H 11/23/23 14:38 Band Neutrophils 2.0 % 11/23/23 14:38 Abs Band Neuts (Man) 0.2 10^3/cmm (0.0-1.2) 11/23/23 14:38 Absolute Lymphocytes 2.3 10^3/cmm (1.2-3.4) 11/23/23 14:38 Lymphocytes (Manual) 18 % 11/23/23 14:38 Monocytes (Manual) 2.0 % 11/23/23 14:38 Absolute Monocytes 0.2 10^3/cmm (0.1-0.6) 11/23/23 14:38 Eosinophils (Manual) 5 % 11/23/23 14:38 Absolute Eosinophils 0.6 10^3/cmm (0.0-0.7) 11/23/23 14:38 Basophils (Manual) 0.0 % 11/23/23 14:38 Absolute Basophils 0.0 10^3/cmm (0.0-0.2) 11/23/23 14:38 Metamyelocytes 3.0 % 11/23/23 14:38 Platelet Estimate Normal (Normal) 11/23/23 14:38 Giant Platelets Trace 11/23/23 14:38 PT 13.10 SECONDS (12.1-14.9) 11/23/23 14:38 INR 0.96 (0.8-1.2) 11/23/23 14:38 Sodium 137 mmol/L (136-145) 11/23/23 14:38 Potassium 4.2 mmol/L (3.5-5.1) 11/23/23 14:38 Chloride 102 mmol/L (98-107) 11/23/23 14:38 Carbon Dioxide 23 mmol/L (22-29) 11/23/23 14:38 Anion Gap 16.2 (5-19) 11/23/23 14:38 BUN 32 mg/dL (8-23) H 11/23/23 14:38 Creatinine 1.1 mg/dL (0.5-0.9) H 11/23/23 14:38 GFR Calculation Not Reportable 11/23/23 14:38 Glucose 91 mg/dL (65-115) 11/23/23 14:38 Calculated Osmolality 290 mOsm/kg (285-295) 11/23/23 14:38 Calcium 9.5 mg/dL (8.5-10.5) 11/23/23 14:38 Total Bilirubin 0.2 mg/dL (0.15-1.2) 11/23/23 14:38 AST 15 U/L (0-32) 11/23/23 14:38 ALT 21 U/L (0-33) 11/23/23 14:38 Alkaline Phosphatase 114 U/L (35-105) H 11/23/23 14:38 Total Protein 6.8 g/dL (6.6-8.7) 11/23/23 14:38 Albumin 3.7 g/dL (3.5-5.2) 11/23/23 14:38 Globulin 3.1 g/dL (1.3-4.6) 11/23/23 14:38 Lipase 28 U/L (13-60) 11/23/23 14:38 Discharge Plan Discharge Patient Disposition: Home Clinical Impression: Acute diverticulitis Condition: Stable Prescriptions: New metronidazole 500 mg tablet 500 mg PO Q8H Qty: 30 0RF ciprofloxacin HCl 500 mg tablet 500 mg PO Q12H Qty: 20 0RF No Action nitroglycerin [Nitrostat] 0.4 mg tablet, sublingual 0.4 mg sublingual Q5M PRN (Reason: chest pain) Rx Instructions: do not exceed 3 doses per episode prednisone 20 mg tablet 20 mg PO DAILY 5 Days Qty: 5 0RF benzonatate 100 mg capsule 100 mg PO BID PRN (Reason: cough) Qty: 14 0RF Rx Instructions: Primarily use at bedtime. losartan 25 mg tablet 25 mg PO DAILY Qty: 90 3RF prednisone 10 mg tablet 10 mg PO DAILY Qty: 10 0RF duloxetine 30 mg capsule,delayed release(DR/EC) 30 mg PO DAILY Qty: 30 5RF Rx Instructions: for pain diclofenac potassium 50 mg tablet 50 mg PO BID Qty: 60 5RF levothyroxine 125 mcg tablet See Rx Instructions .ROUTE .COMPLEX Qty: 90 1RF Dose Instruction: Take 1 tablet by mouth once daily Rx Instructions: Take 1 tablet by mouth once daily atorvastatin 20 mg tablet See Rx Instructions .ROUTE .COMPLEX Qty: 90 3RF Dose Instruction: TAKE 1 TABLET BY MOUTH ONCE DAILY AT NIGHT Rx Instructions: TAKE 1 TABLET BY MOUTH ONCE DAILY AT NIGHT docusate sodium 100 mg Tablet 100 mg PO BID Multivitamin 50 Plus Tablet 1 tab PO DAILY bilberry fruit 1,000 mg Capsule 1 g PO DAILY cholecalciferol (vitamin D3) [Vitamin D3] 125 mcg (5,000 unit) Tablet 125 mcg PO DAILY Glucosamine Chondroitin 550-30-1 mg Capsule 1 cap PO BID Discharge Orders: Discharge ED (Routine); Ordered 11/23/23 Ordered By: Darci Sanches Referrals: Godwin Diaz DO [Primary Care Provider] - 1 week Patient Instructions: Diverticulitis Activity Restrictions/Additional Instructions: Your CT scan showed you have diverticulitis in her left lower abdomen, your symptomatology is consistent with this also. You have been prescribed 2 antibiotics to your pharmacy. Please pick them up in the morning and start taking them as directed. Please follow-up with your family practice physician within next 7 days for further evaluation treatment as needed. Coding Level of Care Code ED Internal [employer] for [employer] Documented by User: Darci Sanches DO 11/24/23 00:14 HPI - GI Bleed 2 General: Chief complaint: GI Bleed Stated complaint: lower stomach pain, and tar looking stools Time Seen by Provider: 11/23/23 17:10 Related Data Home Medications Medication Instructions Recorded Confirmed nitroglycerin 0.4 mg sublingual 0.4 mg sublingual Q5M PRN chest 01/28/21 11/16/23 tablet (Nitrostat) pain bilberry fruit 1,000 mg capsule 1 g PO DAILY 09/10/21 11/16/23 cholecalciferol (vitamin D3) 125 125 mcg PO DAILY 09/10/21 11/16/23 mcg (5,000 unit) tablet (Vitamin D3) docusate sodium 100 mg tablet 100 mg PO BID 09/10/21 11/16/23 glucosamine sulf dipot 1 cap PO BID 09/10/21 11/16/23 chlr,msm,chond 550 mg-C 30 mg-matthias 1 mg capsule (Glucosamine Chondroitin) [id number]-[id number]-[id number] 1 tab PO DAILY 09/10/21 11/16/23 tablet (Multivitamin 50 Plus tablet) Previous Rx's Medication Instructions Recorded losartan 25 mg tablet 25 mg PO DAILY #90 tabs 01/04/23 benzonatate 100 mg capsule 100 mg PO BID PRN cough #14 caps 05/11/23 prednisone 20 mg tablet 20 mg PO DAILY 5 days #5 tabs 05/11/23 prednisone 10 mg tablet 10 mg PO DAILY sinus and throat 06/03/23 inflammation #10 tabs duloxetine 30 mg capsule,delayed 30 mg PO DAILY #30 caps 07/12/23 release diclofenac potassium 50 mg tablet 50 mg PO BID for inflammatory pain 08/09/23 #60 tabs levothyroxine 125 mcg tablet See Rx Instructions .Route 09/20/23 .COMPLEX #90 tabs atorvastatin 20 mg tablet See Rx Instructions .Route 11/08/23 .COMPLEX #90 tabs ciprofloxacin HCl 500 mg tablet 500 mg PO Q12H #20 tabs 11/23/23 metronidazole 500 mg tablet 500 mg PO Q8H #30 tabs 11/23/23 Allergies Allergy/AdvReac Type Severity Reaction Status Date / Time Sulfa (Sulfonamide Allergy Unknown Unknown Verified 11/23/23 14:31 Antibiotics) Tetanus Vaccines and Toxoid Allergy Unknown Unknown Verified 11/23/23 14:31 Iodinated Contrast Media Allergy Unknown Verified 11/23/23 14:31 PFSH ED 2 PFSH: Medical History Hypertension Hyperthyroidism Myocardial infarction MANOLO (obstructive sleep apnea) Surgical History History of cholecystectomy Open incision Reports waking up during surgery H/O: hysterectomy Reports waking up during surgery Social History Smoking and tobacco/nicotine status: never used tobacco/nicotine Second hand smoke exposure: No Alcohol intake: never Substance/Drug Use: never Course 2 Vital Signs: Vital signs: Vital Signs Temperature 98.0 F 11/23/23 14:24 Pulse Rate 86 11/23/23 20:48 Respiratory Rate 16 11/23/23 20:48 Blood Pressure 183/99 11/23/23 20:48 Pulse Oximetry 98 11/23/23 20:48 Oxygen Delivery Me thod Room Air 11/23/23 19:41 MDM - GI Bleed Medical Decision Making Care transitioned over myself at shift change, once lab work and CT was resulted when discussed these results with the patient. Patient is having symptomatology consistent with diverticulitis with minor bleeding. Patient be placed on Cipro and metronidazole and discharged home. Patient agreeable previous plan. Medical Records Care signed out to Dr. Sanches at change of shift. See final notes for diagnosis and disposition. Lab Data 11/23/23 14:38 11/23/23 14:38 Radiology Impressions Abdomen/Pelvis CT 11/23/23 17:23 IMPRESSION: Limited evaluation of the pelvis secondary to beam hardening artifact from left hip prosthesis. Severe colonic diverticulosis. Mild pericolonic fat stranding within the sigmoid colon concerning for diverticulitis in the appropriate clinical setting. Laboratory Results WBC 11.59 10^3/uL (3.29-11.43) H 11/23/23 14:38 RBC 3.90 10^6/uL (3.85-5.65) 11/23/23 14:38 Hgb 12.00 g/dL (11.27-16.99) 11/23/23 14:38 Hct 37.4 % (36-47) 11/23/23 14:38 MCV 95.9 fl (85-98) 11/23/23 14:38 MCH 30.8 pg (27-33) 11/23/23 14:38 MCHC 32.1 g/dL (30-55) 11/23/23 14:38 RDW 14.0 % (12.1-15.1) 11/23/23 14:38 Plt Count 391 10^3/cmm (157-399) 11/23/23 14:38 MPV 8.9 fL (7.4-10.4) 11/23/23 14:38 Lymph % (Auto) Not Reportable 11/23/23 14:38 Whiteside % (Auto) Not Reportable 11/23/23 14:38 Lymph # (Auto) Not Reportable 11/23/23 14:38 Whiteside # (Auto) Not Reportable 11/23/23 14:38 Total Counted 100 (0-100) 11/23/23 14:38 Atypical Lymphs % 2.0 % (0-5) 11/23/23 14:38 Absolute Neutrophils 8.1 10^3/cmm (1.4-6.5) H 11/23/23 14:38 Segmented Neutrophils 68 % 11/23/23 14:38 Abs Segm Neuts (Man) 7.9 10/cmm (1.6-7.1) H 11/23/23 14:38 Band Neutrophils 2.0 % 11/23/23 14:38 Abs Band Neuts (Man) 0.2 10^3/cmm (0.0-1.2) 11/23/23 14:38 Absolute Lymphocytes 2.3 10^3/cmm (1.2-3.4) 11/23/23 14:38 Lymphocytes (Manual) 18 % 11/23/23 14:38 Monocytes (Manual) 2.0 % 11/23/23 14:38 Absolute Monocytes 0.2 10^3/cmm (0.1-0.6) 11/23/23 14:38 Eosinophils (Manual) 5 % 11/23/23 14:38 Absolute Eosinophils 0.6 10^3/cmm (0.0-0.7) 11/23/23 14:38 Basophils (Manual) 0.0 % 11/23/23 14:38 Absolute Basophils 0.0 10^3/cmm (0.0-0.2) 11/23/23 14:38 Metamyelocytes 3.0 % 11/23/23 14:38 Platelet Estimate Normal (Normal) 11/23/23 14:38 Giant Platelets Trace 11/23/23 14:38 PT 13.10 SECONDS (12.1-14.9) 11/23/23 14:38 INR 0.96 (0.8-1.2) 11/23/23 14:38 Sodium 137 mmol/L (136-145) 11/23/23 14:38 Potassium 4.2 mmol/L (3.5-5.1) 11/23/23 14:38 Chloride 102 mmol/L (98-107) 11/23/23 14:38 Carbon Dioxide 23 mmol/L (22-29) 11/23/23 14:38 Anion Gap 16.2 (5-19) 11/23/23 14:38 BUN 32 mg/dL (8-23) H 11/23/23 14:38 Creatinine 1.1 mg/dL (0.5-0.9) H 11/23/23 14:38 GFR Calculation Not Reportable 11/23/23 14:38 Glucose 91 mg/dL (65-115) 11/23/23 14:38 Calculated Osmolality 290 mOsm/kg (285-295) 11/23/23 14:38 Calcium 9.5 mg/dL (8.5-10.5) 11/23/23 14:38 Total Bilirubin 0.2 mg/dL (0.15-1.2) 11/23/23 14:38 AST 15 U/L (0-32) 11/23/23 14:38 ALT 21 U/L (0-33) 11/23/23 14:38 Alkaline Phosphatase 114 U/L (35-105) H 11/23/23 14:38 Total Protein 6.8 g/dL (6.6-8.7) 11/23/23 14:38 Albumin 3.7 g/dL (3.5-5.2) 11/23/23 14:38 Globulin 3.1 g/dL (1.3-4.6) 11/23/23 14:38 Lipase 28 U/L (13-60) 11/23/23 14:38 All radiology interpretation(s) finalized by discharge Discharge Plan Discharge Patient Disposition: Home Clinical Impression: Acute diverticulitis Condition: Stable Prescriptions: New metronidazole 500 mg tablet 500 mg PO Q8H Qty: 30 0RF ciprofloxacin HCl 500 mg tablet 500 mg PO Q12H Qty: 20 0RF No Action nitroglycerin [Nitrostat] 0.4 mg tablet, sublingual 0.4 mg sublingual Q5M PRN (Reason: chest pain) Rx Instructions: do not exceed 3 doses per episode prednisone 20 mg tablet 20 mg PO DAILY 5 Days Qty: 5 0RF benzonatate 100 mg capsule 100 mg PO BID PRN (Reason: cough) Qty: 14 0RF Rx Instructions: Primarily use at bedtime. losartan 25 mg tablet 25 mg PO DAILY Qty: 90 3RF prednisone 10 mg tablet 10 mg PO DAILY Qty: 10 0RF duloxetine 30 mg capsule,delayed release(DR/EC) 30 mg PO DAILY Qty: 30 5RF Rx Instructions: for pain diclofenac potassium 50 mg tablet 50 mg PO BID Qty: 60 5RF levothyroxine 125 mcg tablet See Rx Instructions .ROUTE .COMPLEX Qty: 90 1RF Dose Instruction: Take 1 tablet by mouth once daily Rx Instructions: Take 1 tablet by mouth once daily atorvastatin 20 mg tablet See Rx Instructions .ROUTE .COMPLEX Qty: 90 3RF Dose Instruction: TAKE 1 TABLET BY MOUTH ONCE DAILY AT NIGHT Rx Instructions: TAKE 1 TABLET BY MOUTH ONCE DAILY AT NIGHT docusate sodium 100 mg Tablet 100 mg PO BID Multivitamin 50 Plus Tablet 1 tab PO DAILY bilberry fruit 1,000 mg Capsule 1 g PO DAILY cholecalciferol (vitamin D3) [Vitamin D3] 125 mcg (5,000 unit) Tablet 125 mcg PO DAILY Glucosamine Chondroitin 550-30-1 mg Capsule 1 cap PO BID Discharge Orders: Discharge ED (Routine); Ordered 11/23/23 Ordered By: Darci Sanches Referrals: Godwin Diaz DO [Primary Care Provider] - 1 week Patient Instructions: Diverticulitis Activity Restrictions/Additional Instructions: Your CT scan showed you have diverticulitis in her left lower abdomen, your symptomatology is consistent with this also. You have been prescribed 2 antibiotics to your pharmacy. Please pick them up in the morning and start taking them as directed. Please follow-up with your family practice physician within next 7 days for further evaluation treatment as needed. Coding Level of Care Code ED Internal [employer]er for [employer]
--- NOTE | 2023-11-23 17:23 | CTR_ITS ---
PROCEDURE INFORMATION: Exam: CT Abdomen And Pelvis With Contrast Exam date and time: 11/23/2023 7:13 PM Age: 83 years old Clinical indication: Abdominal pain; Prior surgery; Surgery date: 6+ months; Surgery type: Gb, hyst; Additional info: Abd pain/black tarry stools TECHNIQUE: Imaging protocol: Computed tomography of the abdomen and pelvis with contrast. Radiation optimization: All CT scans at this facility use at least one of these dose optimization techniques: automated exposure control; mA and/or kV adjustment per patient size (includes targeted exams where dose is matched to clinical indication); or iterative reconstruction. Contrast material: OMNI 350; Contrast volume: 100 ml; Contrast route: INTRAVENOUS (IV); COMPARISON: CR XR hip LT 2-3V wo/w pel* [id number] 10/14/2021 11:00 AM RADIATION DOSE METRICS: Total DLP (mGy-cm): 100 FINDINGS: Liver: Normal. No mass. Gallbladder and biliary ducts: Status post cholecystectomy. Pancreas: Normal. No ductal dilation. Spleen: Normal. No splenomegaly. Adrenal glands: Normal. No mass. Kidneys and ureters: Normal. No hydronephrosis. Stomach and bowel: Severe diverticulosis. Mild surrounding fat stranding which may represent diverticulitis in the appropriate clinical setting. Appendix: No evidence of appendicitis. Intraperitoneal space: No free air. No significant fluid collection. Vasculature: Severe diffuse atherosclerotic calcifications. 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 Lymph nodes: Unremarkable. No enlarged lymph nodes. Urinary bladder: Unremarkable as visualized. Reproductive: Status post hysterectomy. Bones/joints: No acute fractures. Severe multilevel spondylosis. 2 mm retrolisthesis of T12 on L1 and L1-L2. Status post left hip prosthesis without evidence of hardware failure. Soft tissues: Unremarkable. CT/CT abdomen pelvis w con* [id number] IMPRESSION: Limited evaluation of the pelvis secondary to beam hardening artifact from left hip prosthesis. Severe colonic diverticulosis. Mild pericolonic fat stranding within the sigmoid colon concerning for diverticulitis in the appropriate clinical setting.
[2023-11-23 17:30] VITALS: BP 147/77; PULSE 64; O2SAT 93
[2023-11-23 18:00] VITALS: BP 166/78; PULSE 68; O2SAT 94
--- NOTE | 2023-11-23 18:04 | PC.NURSE ---
THIS NURSE ATTEMPTED TO START IV FOR AN ORDERED CT WITH CONTRAST. THIS ATTEMPT FAILED. THIS NURSE EDUCATED PT ON THE NEED TO TRY AGAIN TO GET THE IV FOR THE SCAN. PT WAS UPSET AND IRRITATED AND STATED WELL I TOLD YOU THERE WERE NO VEINS FOR YOU TO GET AN IV IN BESIDES MY HAND. THIS NURSE EDUCATED PT ON THE NEED FOR THE IV TO BE IN SPOT OTHER THAN HER HAND DUE TO THE CONTRAST IN THE CT. PT STATES WELL WHAT ARE WE GOING TO DO NOW? YOU CAN'T GET AN IV IN ANY OTHER SPACE THAN MY HAND. THERE ARE NO BLOOD VEINS. THIS NURSE ASKED THE PT TO CLARIFY IF SHE WAS WILLING TO LET THIS NURSE ATTEMPT TO PLACE ANOTHER IV FOR THE SCAN OR IF SHE WAS REFUSING THE IV FOR THE SCAN. PT STATED WHAT ARE WE GOING TO DO NOW? THIS NURSE EDUCATED THE PT ON THE OPTION OF REFUSING THE SCAN WHICH WOULD NOT ALLOW US TO FURTHER INVESTIGATE HER CONDITION, OR LETTING A NURSE PUT IN AN IV OTHER THAN IN HER HAND. PT STATES I WANT TO KNOW WHAT IS WRONG WITH ME. THIS NURSE TOLD PT THAT WE WOULD NEED TO START AN IV. PT AGREED.
[2023-11-23] MEDS: diphenhydrAMINE 50 mg/mL SDV 1mL IVP (19:11)
[2023-11-23] MEDS: methylPREDNISolone sod succ 40 mg/mL INJ IVP (19:11)
[2023-11-23] MEDS: iohexol 350 mg/mL 500 mL Btl (per mL) IV (19:33)
[2023-11-23 19:41] VITALS: BP 204/93; PULSE 67; RESP 16; O2SAT 94
[2023-11-23 20:39] VITALS: BP 183/99; PULSE 89; RESP 18; O2SAT 93
[2023-11-23] MEDS: metroNIDAZOLE 500 MG Tablet PO (20:44)
[2023-11-23] MEDS: ciprofloxacin 500 mg Tablet PO (20:44)
[2023-11-23 20:48] VITALS: BP 183/99; PULSE 86; RESP 16; O2SAT 98
== END 2023-11-23 20:50 | disposition home or self-care (01) ==
PROVIDERS: Emergency Medicine; Emergency Provider Family Medicine; PCP Family Medicine
DX: K57.92 Diverticulitis of intestine, part unspecified, without perforation or abscess without bleeding (principal); I10 Essential (primary) hypertension; I25.2 Old myocardial infarction
CPT/HCPCS: 36415; 74177; 80053; 83690; 85007; 85025; 85610; 96374; 99285; J1200; J2919

== ENCOUNTER → 2023-11-30 09:52 | Outpatient (BNVA) | payer MEDICARE, MEDICAID, SELFPAY | PROVIDERS: PCP Family Medicine; Visit Provider Family Medicine | DX: N28.9 Disorder of kidney and ureter, unspecified (principal); E03.9 Hypothyroidism, unspecified | CPT/HCPCS: 80048; 84443 ==

== ENCOUNTER → 2024-02-03 10:10 | Outpatient (BNVA) | payer MEDICARE, MEDICAID, SELFPAY | PROVIDERS: PCP Family Medicine; Visit Provider Family Medicine | DX: F32.A Depression, unspecified (principal); R05.9 Cough, unspecified; R04.2 Hemoptysis; R07.81 Pleurodynia; E03.9 Hypothyroidism, unspecified | CPT/HCPCS: 80053; 82607; 84443; 85025 ==

== ENCOUNTER 2024-02-06 13:31 | Emergency (ER) | payer MEDICARE, MEDICAID, SELFPAY ==
[2024-02-06 13:51] VITALS: BP 170/94; PULSE 65; RESP 16; TEMP 36.7; O2SAT 95
[2024-02-06 14:50] VITALS: BP 165/96; PULSE 61; RESP 16; O2SAT 96
--- NOTE | 2024-02-06 16:05 | W.ED.EYEPROB ---
HPI - Eye Problem General: Chief complaint: Eye Problems Stated complaint: rt eye dilated Time Seen by Provider: 02/06/24 14:00 History of Present Illness: This patient is an 83-year-old white female who presents to the ER concerned about a dilated right pupil. Actually family members noticed this this morning and they were concerned about a possible stroke so they brought her into the emergency department. Patient states she has not having a headache. No numbness weakness or tingling anywhere. She does have some slight burning in the right eye and she states her vision has somewhat foggy from the right eye. She states she has had no prior issues with her eyes. Related Data Home Medications Medication Instructions Recorded Confirmed nitroglycerin 0.4 mg sublingual 0.4 mg sublingual Q5M PRN chest 01/28/21 02/06/24 tablet (Nitrostat) pain docusate sodium 100 mg tablet 100 mg PO BID 09/10/21 02/06/24 [id number]-nccbhqdp-pnoezt 1 tab PO DAILY 09/10/21 02/06/24 tablet (Multivitamin 50 Plus tablet) atorvastatin 20 mg tablet 20 mg PO QPM 02/06/24 02/06/24 levothyroxine 125 mcg tablet 125 mcg PO DAILY 02/06/24 02/06/24 Previous Rx's Medication Instructions Recorded losartan 25 mg tablet 25 mg PO DAILY #90 tabs 01/04/23 diclofenac potassium 50 mg tablet 50 mg PO BID for inflammatory pain 01/03/24 #60 tabs duloxetine 60 mg capsule,delayed 60 mg PO DAILY pain/moods #90 caps 02/03/24 release Allergies Allergy/AdvReac Type Severity Reaction Status Date / Time Sulfa (Sulfonamide Allergy Unknown Unknown Verified 02/06/24 13:58 Antibiotics) Tetanus Vaccines and Toxoid Allergy Unknown Unknown Verified 02/06/24 13:58 Iodinated Contrast Media Allergy Unknown Verified 02/06/24 13:58 Review of Systems General: Reports: 10 or more systems reviewed and unremarkable except in HPI and below Eyes: Reports: blurry vision and other (Dilated right pupil.) PFS ED PFSH: Medical History Hypertension Hyperthyroidism Myocardial infarction MANOLO (obstructive sleep apnea) Surgical History History of cholecystectomy Open incision Reports waking up during surgery H/O: hysterectomy Reports waking up during surgery Social History Smoking and tobacco/nicotine status: former use of tobacco/nicotine Second hand smoke exposure: No Alcohol intake: never Substance/Drug Use: never Physical Exam Const: COMMON NORMALS: no acute distress, patient oriented x3 and no limitations GENERAL APPEARANCE: cooperative and comfortable HENMT: COMMON NORMALS: normocephalic, atraumatic, Normal nasal mucous membranes and turbinates present, moist oral mucous membranes and oropharynx normal HEAD & SCALP: normal to inspection, normocephalic and atraumatic FACE & SINUS: normal facial exam NOSE: Normal nasal mucous membranes and turbinates present Eye: COMMON NORMALS: EOMs intact bilaterally and conjunctivae normal VISUAL ACUITY: Yes other (20/50 in the left eye, 20/70 right eye) CONJUNCTIVA: Yes conjunctivae normal PUPIL: Yes Pupils anisocoria, Yes pupil size - right (5-6) and Yes pupil size - left (2) OTHER: IOP right eye was 15. Neck/C-Spine: COMMON NORMALS: supple and no JVD Chest: COMMONS NORMALS: normal inspection of the chest Resp: COMMON NORMALS: normal respiratory effort and clear to auscultation bilaterally AUSCULTATION: clear to auscultation bilaterally Cardio: COMMON NORMALS: no JVD, regular rate, regular rhythm, No gallops present (Cardio), No murmurs present (Cardio) and No rub (Cardio) RATE: regular rate RHYTHM: regular rhythm GI: COMMON NORMALS: Normal to inspection, nondistended, normoactive bowel sounds present, Soft to palpation and non-tender AUSCULTATION: Yes normoactive bowel sounds PALPATION: Yes Soft to palpation : COMMON NORMALS: Yes no CVA tenderness BLADDER/KIDNEY EXAM: Yes no CVA tenderness Back/Pelvis: COMMON NORMALS: no CVA tenderness and thoracic and lumbar spine normal to inspection Extremity: COMMON NORMALS: normal to inspection Neuro: COMMON NORMALS: patient oriented x3 and CN's II-XII intact bilaterally Psych: COMMON NORMALS: mental status grossly normal, Normal thought process present and cooperative THOUGHT PROCESS: Normal thought process present Skin: COMMON NORMALS: no rashes or lesions noted, turgor normal and no jaundice GENERAL SKIN EXAM: no rashes or lesions noted and turgor normal Course Vital Signs: Vital signs: Vital Signs Temperature 98.0 F 02/06/24 13:51 Pulse Rate 61 02/06/24 14:50 Respiratory Rate 16 02/06/24 14:50 Blood Pressure 165/96 02/06/24 14:50 Pulse Oximetry 96 02/06/24 14:50 Oxygen Delivery Me thod Room Air 02/06/24 13:51 MDM - Eye Problem Medical Decision Making This could be medication related or a primary eye problem. Patient was reassured that this is not a stroke. I discussed this case with Dr. German Watson, administrative support assoc. He will see her in clinic tomorrow. Patient was discharged in stable condition. No radiology studies performed this visit Discharge Plan Discharge Patient Disposition: Home Clinical Impression: Dilated pupil Condition: Stable Prescriptions: No Action nitroglycerin [Nitrostat] 0.4 mg tablet, sublingual 0.4 mg sublingual Q5M PRN (Reason: chest pain) Rx Instructions: do not exceed 3 doses per episode duloxetine 60 mg capsule,delayed release(DR/EC) 60 mg PO DAILY Qty: 90 1RF losartan 25 mg tablet 25 mg PO DAILY Qty: 90 3RF diclofenac potassium 50 mg tablet 50 mg PO BID Qty: 60 5RF atorvastatin 20 mg tablet 20 mg PO QPM Rx Instructions: TAKE 1 TABLET BY MOUTH ONCE DAILY AT NIGHT levothyroxine 125 mcg tablet 125 mcg PO DAILY docusate sodium 100 mg Tablet 100 mg PO BID Multivitamin 50 Plus Tablet 1 tab PO DAILY Discharge Orders: Discharge ED (Routine); Ordered 02/06/24 Ordered By: Coy Mart Referrals: German Watson [Physician] - Godwin Diaz DO [Primary Care Provider] - Activity Restrictions/Additional Instructions: Call Dr. German Watson's, administrative support assoc, office in the morning to schedule an appointment. The office opens at 8 AM. Coding Level of Care Code ED Intermediate Card Tender for Robinson Hendrix
== END 2024-02-06 14:49 | disposition home or self-care (01) ==
PROVIDERS: Emergency Provider Emergency Medicine; PCP Family Medicine
DX: H57.04 Mydriasis (principal); Z87.891 Personal history of nicotine dependence; I10 Essential (primary) hypertension; I25.2 Old myocardial infarction
CPT/HCPCS: 99281

== ENCOUNTER 2024-02-11 11:16 | Outpatient (CLI) | payer MEDICARE, MEDICAID, SELFPAY ==
--- NOTE | 2024-02-11 11:25 | XR_ITS ---
WS: [id number] Exam: XR chest 2V* [id number] Date/Time of Exam: 02/11/2024 11:40 AM Reason For Exam: R04.2 - Hemoptysis Comparison 08/04/2019. Lungs are fully expanded and clear. Trace RIGHT basal pleural effusion. Large calcified mediastinal l ymph node on the RIGHT. Bony structures are intact. Cardiomediastinal silhouette is unremarkable. 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 XR/XR chest 2V* [id number] IMPRESSION: 1. Trace RIGHT basal pleural effusion. 2. No acute process identified.
== END 2024-02-11 11:17 | disposition home or self-care (01) ==
LOC: RAD 11:16
PROVIDERS: PCP Family Medicine; Visit Provider Clinical Nurse Specialist Adult Health
DX: R04.2 Hemoptysis (principal); M17.0 Bilateral primary osteoarthritis of knee
CPT/HCPCS: 20610; 71046; 99213; J3301

== ENCOUNTER 2024-02-29 08:34 | Outpatient (CLI) | payer MEDICARE, MEDICAID, SELFPAY ==
--- NOTE | 2024-02-29 08:39 | MR_ITS ---
WS: [id number] MRI HEAD WITHOUT CONTRAST WITH ATTENTION TO THE ORBITS. TECHNIQUE: Sagittal T1, T2 axial, T2 axial FLAIR, axial susceptibility weighted imaging, axial diffus ion weighted images, and coronal T2 images were obtained. ADC and FSPGR images. CLINICAL INFORMATION: ANISOCORIA OD/3RD NERVE PALSY (PUPIL INVOLVED) COMPARISON: None. FINDINGS: No evidence of restricted diffusion to suggest acute ischemia. Ventricular system and basil ar cisterns are patent. Small vessel changes in the kaylee. Mild small vessel changes. Mild parenchymal volume loss. Normal optic chiasm and pituitary infundibulum. Mild symmetric atrophy temporal lobes h ippocampal formations. Paranasal sinuses are well aerated. Mastoid air cells are well aerated. Normal vascular flow voids at the skull base. Mild disc bulging C3-C4 with mild central canal stenosis and slight indentation of the cervical cord. Normal optic chiasm and pituitary infundibulum. Optic nerves are normal in appearance. Normal visuali zed rectus muscles. Normal cavernous sinuses and Meckel's cave. Incidental tiny lipoma along the tectum measuring 6 x 5 mm MR/[place] [id number] IMPRESSION: 1. No acute intracranial findings. 2. No evidence of restricted diffusion to suggest acute ischemia. 3. Mild small vessel changes with mild parenchymal volume loss. 4. Normal optic chiasm and pituitary infundibulum. Normal cavernous sinuses. 5. 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 Mild central canal stenosis at C3-C4
--- NOTE | 2024-02-29 10:00 | CTR_ITS ---
PROCEDURE INFORMATION: Exam: CT Chest Without Contrast; Diagnostic Exam date and time: 02/29/2024 8:42 AM Age: 83 years old Clinical indication: Cough with hemorrhage; Additional info: Cough with hemoptysis, allergic to contrast dye TECHNIQUE: Imaging protocol: Diagnostic computed tomography of the chest without contrast. Radiation optimization: All CT scans at this facility use at least one of these dose optimization techniques: automated exposure control; mA and/or kV adjustment per patient size (includes targeted exams where dose is matched to clinical indication); or iterative reconstruction. COMPARISON: CR XR chest 2V* [id number] 02/11/2024 11:44 AM RADIATION DOSE METRICS: Total DLP (mGy-cm): 571.87 FINDINGS: Lungs: Small irregular shaped consolidative opacity posteriorly right lung base likely secondary to subsegmental atelectasis. Remaining lung hutton aerated and clear. Small and large airways are unremarkable. Pleural spaces: Unremarkable. No pneumothorax. No pleural effusion. Heart: Unremarkable. No cardiomegaly. No pericardial effusion. Coronary arteries: There are extensive calcification of coronary arteries. Mediastinal space: Large nodular calcification within the mediastinum consistent with old granulomatous disease. Lymph nodes: Unremarkable. No enlarged lymph nodes. Vasculature: There are diffuse atherosclerotic changes throughout the thoracic aorta. There is no aortic aneurysm. Bones/joints: Subacute healing fracture lateral aspect left 8th rib. Mild degenerative changes mid-lower thoracic spine. Advanced degenerative changes both shoulder joints partially visualized. Soft tissues: Unremarkable. CT/CT chest wo con [id number] IMPRESSION: 1. Mild subsegmental atelectasis posteriorly right lung base otherwise unremarkable CT chest. If symptoms persist recommend repeat study in 1 month to document stability or resolution. 2. Diffuse calcification of coronary arteries.
== END 2024-02-29 08:35 | disposition home or self-care (01) ==
LOC: RAD 08:35
PROVIDERS: PCP Family Medicine; Visit Provider Physician Assistant Medical
DX: R04.2 Hemoptysis (principal); I25.84 Coronary atherosclerosis due to calcified coronary lesion; D17.79 Benign lipomatous neoplasm of other sites; H57.02 Anisocoria
CPT/HCPCS: 70336; 71250

== ENCOUNTER → 2024-03-03 08:40 | Outpatient (BNVA) | payer MEDICARE, MEDICAID, SELFPAY | PROVIDERS: PCP Family Medicine; Visit Provider Student in an Organized Health Care Education/Training Program | DX: R03.0 Elevated blood-pressure reading, without diagnosis of hypertension; M19.012 Primary osteoarthritis, left shoulder | CPT/HCPCS: 20610; 77002; J3301 ==

== ENCOUNTER 2024-04-19 12:44 | Outpatient (CLI) | payer MEDICARE, MEDICAID, SELFPAY ==
--- NOTE | 2024-04-19 12:45 | CT_ITS ---
WS: [id number] CT chest wo con [id number] HISTORY: Repeat CT recommended on 02/29/2024. Pain under RIGHT breast. TECHNIQUE: Axial imaging performed through the thorax. Coronal and sagittal reformats are submitted. All CT scans at [facility] use at least one of these dose optimization techniques: automated exposure control; mA and/or kV adjustment per patient size (includes targeted exams where dose is mat ched to clinical indication); or iterative reconstruction. CONTRAST: None DLP: 595.06 mGy.cm COMPARISON: 02/29/2024 Lungs and central airway: Previously described opacification in the posterior RIGHT lung has resolved . There is new very mild interstitial prominence throughout both lungs but no consolidation. Tiny anish ronodule RIGHT upper lobe. Pleura: Normal. No pleural effusion. Heart and pericardium: Mild cardiomegaly. No pericardial effusion. Coronary artery calcifications. Mediastinum and emir: Densely calcified RIGHT hilar lymph node. There are a few scattered small lymph nodes which are not enlarged. Vessels: Ectasia and moderate atherosclerosis aorta. Atherosclerotic plaque continues into the great vessels. Mildly dilated pulmonary artery to 3.7 cm. Chest wall and lower neck: No soft tissue masses. Upper abdomen: No adrenal mass. Gallbladder is not identified. Suprarenal aortic calcifications. Very dense calcification in the proximal SMA. Component of stenosis is likely. Visualized colon and splen ic flexure containing diverticula without acute diverticulitis. Osseous structures: Degenerative thoracic spondylosis. No destructive bone lesions. Advanced degenera tive changes noted at the LEFT shoulder. Mild degenerative changes at the RIGHT shoulder. CT/CT chest wo con [id number] IMPRESSION: 1. Previously described opacification at the RIGHT lung base has resolved. 2. New very mild interstitial prominence since 02/29/2024. Suspect mild acute inflammatory lung disease. No dense consolidation or pneumonia. 3. Mild cardiomegaly. 4. Mild pulmonary hypertension.
== END 2024-04-19 12:45 | disposition home or self-care (01) ==
LOC: RAD 12:47
PROVIDERS: PCP Family Medicine; Visit Provider Family Medicine
DX: R93.89 Abnormal findings on diagnostic imaging of other specified body structures (principal); R91.8 Other nonspecific abnormal finding of lung field; I51.7 Cardiomegaly; I27.20 Pulmonary hypertension, unspecified; I25.10 Atherosclerotic heart disease of native coronary artery without angina pectoris; I89.8 Other specified noninfective disorders of lymphatic vessels and lymph nodes; I70.0 Atherosclerosis of aorta; I28.1 Aneurysm of pulmonary artery; K57.30 Diverticulosis of large intestine without perforation or abscess without bleeding; K57.90 Diverticulosis of intestine, part unspecified, without perforation or abscess without bleeding; M47.894 Other spondylosis, thoracic region; R93.7 Abnormal findings on diagnostic imaging of other parts of musculoskeletal system
CPT/HCPCS: 71250

== ENCOUNTER → 2024-05-16 14:04 | Outpatient (BNVA) | payer MEDICARE, MEDICAID, SELFPAY | PROVIDERS: PCP Family Medicine; Visit Provider Family Medicine | DX: K25.9 Gastric ulcer, unspecified as acute or chronic, without hemorrhage or perforation (principal) | CPT/HCPCS: 80053; 85025; 86677 ==

== ENCOUNTER 2024-05-19 10:39 | Outpatient (CLI) | payer MEDICARE, MEDICAID, SELFPAY | END 2024-05-19 10:40 | LOC: LAB 10:40 | PROVIDERS: PCP Family Medicine; Visit Provider Family Medicine | DX: K25.9 Gastric ulcer, unspecified as acute or chronic, without hemorrhage or perforation (principal); M17.0 Bilateral primary osteoarthritis of knee; Z71.89 Other specified counseling | CPT/HCPCS: 20610; 87338; 99213; J3301 ==

== ENCOUNTER → 2024-06-13 08:34 | Outpatient (BNVA) | payer MEDICARE, MEDICAID, SELFPAY | PROVIDERS: PCP Family Medicine; Visit Provider Physician Assistant | DX: M19.012 Primary osteoarthritis, left shoulder (principal) | CPT/HCPCS: 99213 ==

== ENCOUNTER → 2024-07-07 10:33 | Outpatient (BNVA) | payer MEDICARE, MEDICAID, SELFPAY | PROVIDERS: PCP Family Medicine; Visit Provider Family Medicine | DX: F32.A Depression, unspecified (principal); E05.90 Thyrotoxicosis, unspecified without thyrotoxic crisis or storm; K25.9 Gastric ulcer, unspecified as acute or chronic, without hemorrhage or perforation; M19.90 Unspecified osteoarthritis, unspecified site; R51.9 Headache, unspecified; E03.9 Hypothyroidism, unspecified | CPT/HCPCS: 80053; 82607; 84439; 84443; 84481; 85025 ==

== ENCOUNTER 2024-07-10 17:15 | Emergency (ER) | payer MEDICARE, MEDICAID, SELFPAY ==
[2024-07-10 17:54] VITALS: BP 150/58; PULSE 66; TEMP 36.6; O2SAT 96; BMI 49.9
--- NOTE | 2024-07-10 18:07 | USCV_ITS ---
Breana Mendez Age: 83 Gender: F : 1940 Exam Date: 07/10/2024 18:41 Ordering Phys: Janette Mobley MD Technologist: ADA [place] [facility] [place]: dvt Patient has had 4 prior RLE DVTs, beginning at childbirth. HISTORY: dvt Patient has had 4 prior RLE DVTs, beginning at childbirth. PROCEDURES: Venous duplex imaging was performed in only the right lower extremity. The following venous structures were evaluated: common femoral vein, profunda vein, proximal portion of the greater saphenous vein, superficial femoral vein, and the popliteal vein. In addition, the posterior tibial and peroneal tveins were evaluated. Serial compression, augmentation maneuvers, and spectral Doppler flow evaluation were performed. The RIGHT great saphenous vein is normal. There appears to be dhcts-oy-hjgxdtv DVT in all of the RIGHT lower extremity deep veins, with from complete to partial compressibilty, no augmentation to poor augmentation, visible mural thrombus, and partial channel effect in all but the RIGHT mid femoral vein, which appears to be completely occluded. In addition, all of the deep veins of the RIGHT lower extremity are of small calibre, indicating a chronic condition. 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 Small caliber RLE veins from chronic DVT Miguel Angel Miller MD (Electronically Signed) Final Date: 11 July 2024 15:53 S
[2024-07-10 18:29] LABS: Basophils # 0.1 10^3/uL (0.0-0.1); Basophils % 0.8 %; Eosinophils # 0.3 10^3/uL (0.0-0.8); Eosinophils % 3.7 %; Hematocrit 39.2 % (36-47); Lymphocytes % 25.7 %; Mean Corpuscular HGB Conc 32.1 g/dL (30-55); Mean Corpuscular Hemoglobin 30.3 pg (27-33); Mean Corpuscular Volume 94.2 fl (85-98); Monocytes # 0.8 10^3/uL (0.2-0.9); Monocytes % 10.2 %; Neutrophils # 4.71 10^3/uL (1.8-7.7); Neutrophils % 59.2 %; Nucleated Red Blood Cells % 0 %; Platelet Count 288 10^3/cmm (157-399); Red Blood Count 4.16 10^6/uL (3.85-5.65); Red Cell Distribution Width 14.8 % (12.1-15.1); White Blood Count 7.94 10^3/uL (3.29-11.43)
[2024-07-10 18:58] LABS: Erythrocyte Sedimentation Rate 21 mm/hr (0-15)
[2024-07-10 20:02] VITALS: BP 162/91; PULSE 66; O2SAT 95
--- NOTE | 2024-07-10 20:51 | ED_ITS ---
HPI - Extremity Problem 2 General: Chief complaint: Extremity Problem,Nontraumatic Stated complaint: Right leg welling Time Seen by Provider: 07/10/24 19:11 History of Present Illness: 83-year-old female presents with pain be hind her right knee in the popliteal area. Patient is concerned that she has a blood clot as she has a history of blood clots in the past and this was similar. She reports that this was back and that 80s and she has not been on any blood thinner since then. Associated symptoms: Deny chest pain or fever(s) Related Data Home Medications ?Medication ?Instructions ?Recorded ?Confirmed nitroglycerin 0.4 mg sublingual 0.4 mg sublingual Q5M PRN chest 01/28/21 06/13/24 tablet (Nitrostat) pain docusate sodium 100 mg tablet 100 mg PO BID 09/10/21 0 06/13/24 lendkawvtswp-wjkjvjyc-nltggw 1 tab PO DAILY 09/10/21 0 06/13/24 tablet (Multivitamin 50 Plus tablet) atorvastatin 20 mg tablet 20 mg PO QPM 02/06/24 Previous Rx's ?Medication ?Instructions ?Recorded diclofenac potassium 50 mg tablet 50 mg PO BID for inf lammatory pain 01/03/24 Held on 05/24/24. #60 tabs Instructions: Guidelines duloxetine 60 mg capsule,delayed 60 mg PO DAILY pain/m oods #90 caps 02/03/24 release losartan 25 mg tablet 25 mg PO DAILY #90 tabs 01/21 04/14 levothyroxine 125 mcg tablet 125 mcg PO DAILY thyroid #90 tabs 03/21/24 omeprazole 40 mg capsule,delayed 40 mg PO BID gastric ulcer #60 caps 05/16/24 release bismuth subsalicylate 262 mg 2 tab PO QID H-pylori inf ection 14 05/24/24 chewable tablet days #112 tabs metronidazole 500 mg tablet 500 mg PO Q8H Hpylori infe ction 14 05/24/24 days #42 tabs tetracycline 500 mg capsule 500 mg PO Q6H Hpylori infe ction 14 05/24/24 days #56 caps apixaban 5 mg (74 tabs) tablets in See Rx Instructions PO .COMPLEX 07/10/24 a dose pack ([employer] Make[employer] DVT-PE Treat #74 ea 30D Start) Allergies Allergy/AdvReac Type Severity Reaction Status Date / Time usman Allergy Intermediate ADR-Itching Verified 07/10/24 18:02 Sulfa (Sulfonamide Allergy Unknown Unknown Verified 07/10/24 18:02 Antibiotics) Tetanus Vaccines and Toxoid Allergy Unknown Unknown Verified 07/10/24 18:02 Iodinated Contrast Media Allergy Unknown Verified 07/10/24 18:02 Review of Systems 2 Const: Denies: fever(s) or chills Card: Denies: chest pain or palpitations Resp: Denies: dyspnea or productive cough GI: Denies: abdominal pain, nausea or vomiting Musc: Reports: other (Please see HPI) Neuro: Denies: headache(s) Psych: Denies: anxiety or depression PFSH ED 2 PFSH: Medical History Hypertension Hyperthyroidism Myocardial infarction MANOLO (obstructive sleep apnea) Surgical History History of cholecystectomy Open incision Reports waking up during surgery H/O: hysterectomy Reports waking up during surgery Social History Smoking and tobacco/nicotine status: former use of tobacco/nicotine Second hand smoke exposure: No Alcohol intake: never Substance/Drug Use: never Physical Exam 2 Const: COMMON NORMALS: no acute distress, patient oriented x3 and alert Resp: COMMON NORMALS: normal respiratory effort, No retractions and No use of accessory muscles Cardio: COMMON NORMALS: regular rate and regular rhythm RATE: regular rate RHYTHM: regular rhythm Neuro: COMMON NORMALS: patient oriented x3 SENSORIUM/ORIENTATION: Yes alert Course 2 Vital Signs: Vital signs: Vital Signs Temperature 97.9 F 07/10/24 17:54 Pulse Rate 63 07/10/24 21:41 Blood Pressure 163/90 07/10/24 21:41 Pulse Oximetry 94 07/10/24 21:41 Oxygen Delivery Me thod Room Air 07/10/24 17:54 MDM - Extremity (Nontraumatic) Medical Decision Making Patient labs show no acute findings. Patient's DVT shows acute likely chronic DVTs. Patient will be started on Eliquis. She was given Eliquis first dose in the ER and provided a prescription. I did encourage her to follow-up with her primary care provider and get testing for clotting disorders. Patient stable and discharged home. Lab Data 07/10/24 18:18 Laboratory Results WBC 7.94 10^3/uL (3.29-11.43) 07/10/24 18:18 RBC 4.16 10^6/uL (3.85-5.65) 07/10/24 18:18 Hgb 12.60 g/dL (11.27-16.99) 07/10/24 18:18 Hct 39.2 % (36-47) 07/10/24 18:18 MCV 94.2 fl (85-98) 07/10/24 18:18 MCH 30.3 pg (27-33) 07/10/24 18:18 MCHC 32.1 g/dL (30-55) 07/10/24 18:18 RDW 14.8 % (12.1-15.1) 07/10/24 18:18 Plt Count 288 10^3/cmm (157-399) 07/10/24 18:18 MPV 9.0 fL (7.4-10.4) 07/10/24 18:18 Neut % (Auto) 59.2 % 07/10/24 18:18 Lymph % (Auto) 25.7 % 07/10/24 18:18 Starr % (Auto) 10.2 % 07/10/24 18:18 Eos % (Auto) 3.7 % 07/10/24 18:18 Baso % (Auto) 0.8 % 07/10/24 18:18 Neut # (Auto) 4.71 10^3/uL (1.8-7.7) 07/10/24 18:18 Lymph # (Auto) 2.0 10^3/uL (0.8-4.8) 07/10/24 18:18 Starr # (Auto) 0.8 10^3/uL (0.2-0.9) 07/10/24 18:18 Eos # (Auto) 0.3 10^3/uL (0.0-0.8) 07/10/24 18:18 Baso # (Auto) 0.1 10^3/uL (0.0-0.1) 07/10/24 18:18 Nucleated RBC % (auto) 0 % 07/10/24 18:18 Nucleated RBCs # 0.0 /100WBC 07/10/24 18:18 ESR 21 mm/hr (0-15) H 07/10/24 18:18 XR interpretation done by ED provider, pending radiology final review ED provider radiology interpretation(s): Acute on chronic DVTs Discharge Plan Discharge Patient Disposition: Home Clinical Impression: DVT (deep venous thrombosis) Condition: Stable Prescriptions: New Eliquis DVT-PE Treat 30D Start 5 mg (74 tabs) tablets,dose pack See Rx Instructions .ROUTE .COMPLEX Qty: 74 0RF Rx Instructions: orally per package directions No Action nitroglycerin [Nitrostat] 0.4 mg tablet, sublingual 0.4 mg sublingual Q5M PRN (Reason: chest pain) Rx Instructions: do not exceed 3 doses per episode duloxetine 60 mg capsule,delayed release(DR/EC) 60 mg PO DAILY Qty: 90 1RF omeprazole 40 mg capsule,delayed release(DR/EC) 40 mg PO BID Qty: 60 1RF diclofenac potassium 50 mg tablet 50 mg PO BID Qty: 60 5RF losartan 25 mg tablet 25 mg PO DAILY Qty: 90 3RF levothyroxine 125 mcg tablet 125 mcg PO DAILY Qty: 90 1RF bismuth subsalicylate 262 mg tablet,chewable 2 tab PO QID 14 Days Qty: 112 0RF tetracycline 500 mg capsule 500 mg PO Q6H 14 Days Qty: 56 0RF metronidazole 500 mg tablet 500 mg PO Q8H 14 Days Qty: 42 0RF atorvastatin 20 mg tablet 20 mg PO QPM Rx Instructions: TAKE 1 TABLET BY MOUTH ONCE DAILY AT NIGHT docusate sodium 100 mg Tablet 100 mg PO BID Multivitamin 50 Plus Tablet 1 tab PO DAILY Discharge Orders: Discharge ED (Routine); Ordered 07/10/24 Ordered By: Emir Guerrero Referrals: Godwin Diaz DO [Primary Care Provider] - Discharge Diet: Usual diet Discharge Activity: Increase activity as tolerated Patient Instructions: Apixaban (By mouth) (Eliquis), Deep Vein Thrombosis (ED), Opioid Safety, Pain Management Activity Restrictions/Additional Instructions: Please follow-up with your primary care provider in a couple days for recheck and management long-term of your DVT. Please discuss potential testing for clotting disorders. Print Language: Nigerian Coding Level of Care Code ED Older Worker Specialist for Robinson Hendrix
[2024-07-10] MEDS: apixaban 5 mg Tablet 10 MG PO (21:01)
[2024-07-10 21:41] VITALS: BP 163/90; PULSE 63; O2SAT 94
== END 2024-07-10 20:40 | disposition home or self-care (01) ==
PROVIDERS: Emergency Medicine; Emergency Provider Student in an Organized Health Care Education/Training Program; PCP Family Medicine
DX: I82.401 Acute embolism and thrombosis of unspecified deep veins of right lower extremity (principal); I10 Essential (primary) hypertension; Z87.891 Personal history of nicotine dependence
CPT/HCPCS: 36415; 85025; 85651; 93971; 99284; J9999

== ENCOUNTER 2024-08-22 08:59 | Oncology outpatient (recurring) (ONCR) | payer MEDICARE, MEDICAID, SELFPAY ==
[2024-08-22 11:06] LABS: Basophils # 0.1 10^3/uL (0.0-0.1); Eosinophils # 0.2 10^3/uL (0.0-0.8); Eosinophils % 3.6 %; Hematocrit 40.1 % (36-47); Lymphocytes # 1.4 10^3/uL (0.8-4.8); Lymphocytes % 22.7 %; Mean Corpuscular HGB Conc 31.4 g/dL (30-55); Mean Corpuscular Hemoglobin 30.9 pg (27-33); Mean Corpuscular Volume 98.3 fl (85-98); Mean Platelet Volume 9.7 fL (7.4-10.4); Monocytes # 0.6 10^3/uL (0.2-0.9); Monocytes % 10.5 %; Neutrophils # 3.77 10^3/uL (1.8-7.7); Neutrophils % 61.9 %; Nucleated Red Blood Cells % 0 %; Platelet Count 308 10^3/cmm (157-399); Red Blood Count 4.08 10^6/uL (3.85-5.65); Red Cell Distribution Width 14.4 % (12.1-15.1); White Blood Count 6.09 10^3/uL (3.29-11.43)
[2024-08-22 11:24] LABS: Alanine Aminotransferase 12 U/L (0-33); Albumin Level 3.7 g/dL (3.5-5.2); Alkaline Phosphatase 79 U/L (35-105); Anion Gap 15.6 (5-19); Aspartate Amino Transferase 15 U/L (0-32); Blood Urea Nitrogen 16 mg/dL (8-23); Calcium 9.8 mg/dL (8.5-10.5); Carbon Dioxide 23 mmol/L (22-29); Chloride 101 mmol/L (98-107); Globulin 2.9 g/dL (1.3-4.6); Glucose 78 mg/dL (65-115); Osmolality Calculated 280 mOsm/kg (285-295); Potassium 4.6 mmol/L (3.5-5.1); Sodium 135 mmol/L (136-145); Total Bilirubin 0.3 mg/dL (0.15-1.2); Total Protein 6.6 g/dL (6.6-8.7)
[2024-08-24 02:39] LABS: CARDIOLIPIN AB (IGA) 5.5 APL-U/mL; CARDIOLIPIN AB (IGG) <2.0 GPL-U/mL; CARDIOLIPIN AB (IGM) <2.0 MPL-U/mL
[2024-08-24 22:24] LABS: Lupus DRVVT Confirm NEGATIVE (NEGATIVE); PTT-LA-Screen 36 sec (< OR = 40)
[2024-08-26 00:29] LABS: Beta 2 Glycoprotein IGA <2.0 U/mL (<20.0); Beta 2 Glycoprotein IGG <2.0 U/mL (<20.0); Beta 2 Glycoprotein IGM <2.0 U/mL (<20.0)
[2024-08-26 23:44] LABS: Antithrombin III Activity 111 % normal (80-135)
[2024-08-26 23:58] LABS: PROTEIN C, ACTIVITY 180 % normal (70-180)
[2024-08-30 06:49] LABS: PROTHROMBIN (FACTOR II) 20210G NEGATIVE
== END 2024-09-18 23:59 | disposition home or self-care (01) ==
PROVIDERS: PCP Family Medicine; Visit Provider Internal Medicine Medical Oncology
DX: Z53.9 Procedure and treatment not carried out, unspecified reason (principal); I82.401 Acute embolism and thrombosis of unspecified deep veins of right lower extremity; Z87.891 Personal history of nicotine dependence
CPT/HCPCS: 36415; 80053; 85025; 85210; 85300; 85303; 85613; 85730; 86146; 86147; 99204

== ENCOUNTER → 2024-08-25 11:05 | Outpatient (BNVA) | payer MEDICARE, MEDICAID, SELFPAY | PROVIDERS: PCP Family Medicine; Visit Provider Student in an Organized Health Care Education/Training Program | DX: M12.812 Other specific arthropathies, not elsewhere classified, left shoulder (principal) | CPT/HCPCS: 20610; 77002; J3301; J9999 ==

== ENCOUNTER 2024-09-25 11:35 | Oncology outpatient (recurring) (ONCR) | payer MEDICARE, MEDICAID, SELFPAY ==
[2024-09-25 12:35] LABS: Hematocrit 35.7 % (36-47); Hemoglobin 11.40 g/dL (11.27-16.99); Mean Corpuscular HGB Conc 31.9 g/dL (30-55); Mean Corpuscular Hemoglobin 31.6 pg (27-33); Mean Corpuscular Volume 98.9 fl (85-98); Nucleated Red Blood Cells % 0 %; Platelet Count 286 10^3/cmm (157-399); Red Blood Count 3.61 10^6/uL (3.85-5.65); White Blood Count 6.55 10^3/uL (3.29-11.43)
[2024-09-25 12:57] LABS: Alanine Aminotransferase 16 U/L (0-33); Albumin Level 3.5 g/dL (3.5-5.2); Alkaline Phosphatase 78 U/L (35-105); Anion Gap 17.5 (5-19); Aspartate Amino Transferase 17 U/L (0-32); Blood Urea Nitrogen 26 mg/dL (8-23); Calcium 9.2 mg/dL (8.5-10.5); Carbon Dioxide 22 mmol/L (22-29); Chloride 98 mmol/L (98-107); Creatinine Clr Calc Pharmacy 48.5192; Globulin 2.8 g/dL (1.3-4.6); Glucose 88 mg/dL (65-115); Osmolality Calculated 280 mOsm/kg (285-295); Potassium 4.5 mmol/L (3.5-5.1); Sodium 133 mmol/L (136-145); Total Protein 6.3 g/dL (6.6-8.7)
== END 2024-10-19 23:59 | disposition home or self-care (01) ==
PROVIDERS: PCP Family Medicine; Visit Provider Internal Medicine Medical Oncology
DX: I82.401 Acute embolism and thrombosis of unspecified deep veins of right lower extremity (principal); D64.9 Anemia, unspecified; Z87.891 Personal history of nicotine dependence; Z79.899 Other long term (current) drug therapy
CPT/HCPCS: 36415; 80053; 85025; 99214

== ENCOUNTER → 2024-11-13 09:54 | Outpatient (BNVA) | payer MEDICARE, MEDICAID, SELFPAY | PROVIDERS: PCP Family Medicine; Visit Provider Family Medicine | DX: N28.9 Disorder of kidney and ureter, unspecified (principal); M79.10 Myalgia, unspecified site | CPT/HCPCS: 80048; 83735 ==

== ENCOUNTER → 2024-12-08 09:33 | Outpatient (BNVA) | payer MEDICARE, MEDICAID, SELFPAY | PROVIDERS: PCP Family Medicine; Visit Provider Student in an Organized Health Care Education/Training Program | DX: M19.012 Primary osteoarthritis, left shoulder (principal); Z71.89 Other specified counseling | CPT/HCPCS: 20610; 77002; J3301; J9999 ==

== ENCOUNTER → 2024-12-13 08:40 | Outpatient (BNVA) | payer MEDICARE, MEDICAID, SELFPAY | PROVIDERS: PCP Family Medicine; Visit Provider Physician Assistant | DX: M17.12 Unilateral primary osteoarthritis, left knee (principal); M17.11 Unilateral primary osteoarthritis, right knee | CPT/HCPCS: 20610; 99213; J3301; J9999 ==

== ENCOUNTER 2025-01-31 12:45 | Oncology outpatient (recurring) (ONCR) | payer MEDICARE, MEDICAID, SELFPAY ==
--- NOTE | 2025-01-23 15:00 | USCV_ITS ---
Breana Mendez Age: 84 Gender: F : 1940 Exam Date: 01/23/2025 15:40 Ordering Phys: Godwin Diaz DO Technologist: EMMANUELLE Exam Location: [facility] – [place] Indication: RT leg pain HISTORY: Lower extremity pain_RIGHT PROCEDURES: Venous duplex imaging was performed in only the right lower extremity. The following venous structures were evaluated: common femoral vein, profunda vein, proximal portion of the greater saphenous vein, superficial femoral vein, and the popliteal vein. In addition, the posterior tibial and peroneal trunk were evaluated. FINDINGS: There appears to be chronic DVT in all RIGHT LE deep veins-RIGHT GSV is compressible-similar to study performed on 07/10/2024 CONCLUSIONS Chronic DVT with small atretic veins RLE. No acute appearing thrombus. GSV is patent Miguel Angel Miller MD (Electronically Signed) Final Date: 23 January 2025 16:11 S
--- NOTE | 2025-01-31 12:45 | USCV_ITS ---
Breana Mendez Age: 84 Gender: F : 1940 Exam Date: 01/31/2025 11:53 Ordering Phys: Godwin Diaz DO Technologist: [place]am [place] [facility] [place]: cp sob BP: 132 / 84 HR: 71 Rhythm: Sinus Technical Quality: Adequate MEASUREMENTS (Male / Female) Normal Values 2D ECHO LV Diastolic Diameter PLAX 4.3 cm 4.2 - 5.9 / 3.9 - 5.3 cm IVS Diastolic Thickness 1.3 cm 0.6 - 1.0 / 0.6 - 0.9 cm IVS Systolic Thickness 2.0 cm LVPW Diastolic Thickness 1.4 cm 0.6 - 1.0 / 0.6 - 0.9 cm LVPW Systolic Thickness 1.6 cm LVOT Diameter 2.5 cm LV Ejection Fraction 2D Teich 66.9 % LV Ejection Fraction MOD 4C 72.9 % LV Ejection Fraction MOD 2C 73.6 % LV Ejection Fraction 2C AL 73.6 % LA Diameter 3.7 cm RA Systolic Volume 4C AL 67.4 ml RA Systolic Volume 4C MOD 65.7 ml Aorta at Sinotubular Diameter 3.1 cm IVC Diameter 2.2 cm M-MODE LA Ao Ratio MM 1.1 AV Cusp Separation MM 2.2 cm DOPPLER AV Peak Velocity 166.0 cm/s LVOT Peak Velocity 110.0 cm/s AV Area Cont Eq vti 3.6 cm squared AV Area Cont Eq pk 3.3 cm squared MV Peak Velocity 140.0 cm/s MV Area PHT 5.5 cm squared Mitral E to A Ratio 0.8 TV Peak Velocity 118.5 cm/s TR Peak Velocity 120.0 cm/s TR Peak Gradient 5.8 mmHg TV Peak E Velocity 85.0 cm/s PV Peak Velocity 146.0 cm/s FINDINGS Left Ventricle Normal left ventricular size and systolic function, EF of 60- 65%. No regional wall motion abnormalities. Grade 1 diastolic dysfunction. Right Ventricle Normal in size and function Right Atrium Normal in size Left Atrium Dilated IA Septum Grossly normal Mitral Valve Structurally normal mitral valve. Mild mitral regurgitation Aortic Valve Structurally normal at well. No significant stenosis or regurgitation. Tricuspid Valve Insufficient TR jet to calculate RVSP Pulmonic Valve Not well visualized Pericardium Normal Aorta Normal in size IVC Appears to be dilated CONCLUSIONS LV systolic function is normal with EF of 60-65% Grade 1 diastolic dysfunction Left atrial dilation Mild mitral regurgitation IVC is dilated Gary Knapp MD (Electronically Signed) Final Date: 04 February 2025 10:58 S
== END 2025-02-18 23:59 | disposition home or self-care (01) ==
LOC: RAD 02-01 → ONCMED 02-01 09:09
PROVIDERS: PCP Family Medicine; Visit Provider Internal Medicine Medical Oncology
DX: Z53.9 Procedure and treatment not carried out, unspecified reason; R60.9 Edema, unspecified; R00.2 Palpitations; I50.30 Unspecified diastolic (congestive) heart failure
CPT/HCPCS: 93306; 93971

== ENCOUNTER 2025-02-23 08:56 | Emergency (ER) | payer MEDICARE, MEDICAID, SELFPAY ==
[2025-02-23 09:01] VITALS: BP 186/79; PULSE 64; RESP 18; TEMP 36.6; O2SAT 91; BMI 39.3
--- NOTE | 2025-02-23 09:26 | XR_ITS ---
WS: [id number] Exam: XR chest 1V portable [id number] Date/Time of Exam: 02/23/2025 9:31 AM Reason For Exam: edema Comparison 02/11/2024. The lungs are fully expanded and clear. Heart size is normal. The superior mediastinum is normal in contour. No pleural effusion. Large calcified RIGHT para carinal lymph node noted. Advanced DJD of the LEFT shoulder. XR/XR chest 1V portable [id number] IMPRESSION: 1. No acute cardiopulmonary finding.
--- NOTE | 2025-02-23 09:26 | XR_ITS ---
WS: [id number] Exam: XR hip RT 2-3V wo/w pel* [id number] Date/Time of Exam: 02/23/2025 9:31 AM Reason For Exam: pain; one view pelvis too please No acute fracture. Moderate DJD of the joint compartment. Normal soft tissues. The pelvis is intact as visualized. LEFT total hip replacement. XR/XR hip RT 2-3V wo/w pel* [id number] IMPRESSION: 1. Moderate DJD of the RIGHT hip. No fracture.
--- NOTE | 2025-02-23 09:27 | ECG_ITS ---
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 Measurements Intervals [place] Rate: 61 P: 0 TN: 0 QRS: -31 QRSD: 74 T: 55 QT: 380 QTc: 385 Interpretive Statements SUPRAVENTRICULAR RHYTHM LEFT AXIS DEVIATION [QRS AXIS < -30] LOW QRS VOLTAGE IN PRECORDIAL LEADS [QRS DEFLECTION < 1.0 mV IN CHEST LEADS] ANTEROSEPTAL MYOCARDIAL INFARCTION , PROBABLY OLD [40+ ms Q WAVE IN V1-V4] Compared to ECG 09/10/2021 09:17:54 Supraventricular rhythm now present Sinus rhythm no longer present First degree AV block no longer present Incomplete right bundle-branch block no longer present Myocardial infarct finding still present Electronically Signed On 02-23-2025 18:44:48 RECRUITING INTERN by Little Chu M.D. [email or web address] [id number]
--- NOTE | 2025-02-23 09:27 | W.ED.GENADLT ---
HPI - General Adult General: Chief complaint: Recheck/Abnormal Lab/Rx Stated complaint: RT hip pain / abn labs Time Seen by Provider: 02/23/25 09:02 Source: patient Mode of arrival: ambulatory Limitations: no limitations History of Present Illness: Patient is an 84-year-old female here at the request of her primary care office. Patient states she has had a significant weight gain over the past several weeks. She feels like her legs are swollen. 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 She wears compression stockings to her legs. She has no history of CHF and does not take any type of diuretic. Patient is not complaining of chest pain or shortness of breath. She states she has right hip pain that started a few months ago after she tripped over a maple tree root in her yard. She thinks her hip is fractured and wants x-rays of this today. Patient states she ambulates minimally around her home with the help of a walker. She does not complain of dyspnea with ambulation. Onset (ago): week(s) Severity: severe Pain Consistency: constant Exacerbating factors: other (walking exacerbates her R hip pain) Associated symptoms: Deny chest pain, dyspnea, headache(s), malaise, nausea, rash, palpitations, syncope or vomiting Treatments prior to arrival: other (hydrocodone) Related Data Home Medications ?Medication ?Instructions ?Recorded ?Confirmed nitroglycerin 0.4 mg sublingual 0.4 mg sublingual Q5M PRN chest 01/28/21 02/23/25 tablet (Nitrostat) pain docusate sodium 100 mg tablet 100 mg PO BID 09/10/21 02/23/25 [id number] 1 tab PO DAILY 09/10/21 02/23/25 tablet (Multivitamin 50 Plus tablet) ascorbic acid (vitamin C) 500 mg 500 mg PO DAILY 02/23/25 02/23/25 tablet (Vitamin C) levothyroxine 125 mcg tablet 125 mcg PO QAM thyroid 02/23/25 02/23/25 Previous Rx's ?Medication ?Instructions ?Recorded diclofenac potassium 50 mg tablet 50 mg PO BID for inflammatory pain 01/03/24 Held on 05/24/24. #60 tabs Instructions: Guidelines atorvastatin 20 mg tablet 20 mg PO QPM cholesterol #90 tabs 07/17/24 losartan 25 mg tablet 25 mg PO DAILY #90 tabs 07/26/24 duloxetine 60 mg capsule,delayed 60 mg PO DAILY pain/moods #90 caps 08/28/24 release calcium 600 mg (as carbonate)-vit 1 tab PO BID bone/joint health #60 12/04/24 D3 10 mcg (400 unit)-minerals tabs tablet prednisone 10 mg tablet 10 mg PO DAILY PRN 12/04/24 myalgia/arthralgia 30 days #30 tabs apixaban 2.5 mg tablet 2.5 mg PO BID DVT prophylaxis #180 01/24/25 tabs hydrocodone 5 mg-acetaminophen 325 1 tab PO Q6H PRN pain 7 days #28 02/13/25 mg tablet tabs furosemide 20 mg tablet (Lasix) 20 mg PO DAILY #30 tabs 02/23/25 potassium chloride 20 mEq 20 meq PO DAILY #30 tabs 02/23/25 tablet,extended release (K-Tab) Allergies Allergy/AdvReac Type Severity Reaction Status Date / Time usman Allergy Intermediate ADR-Itching Verified 02/23/25 09:01 Sulfa (Sulfonamide Allergy Unknown Unknown Verified 02/23/25 09:01 Antibiotics) Tetanus Vaccines and Toxoid Allergy Unknown Unknown Verified 02/23/25 09:01 Iodinated Contrast Media Allergy Unknown Verified 02/23/25 09:01 Review of Systems Const: Reports: change in weight; Denies: fever(s), chills, body aches, fatigue or malaise Eyes: Denies: change in vision or blurry vision Card: Reports: edema and swelling of feet/ankles; Denies: chest pain, palpitations, irregular heart rhythm, lightheadedness, syncope, pre-syncope, dyspnea on exertion, orthopnea, leg pain with exertion or acrocyanosis Resp: Denies: dyspnea, productive cough, non-productive cough, pain on inspiration or chest congestion GI: Denies: abdominal pain, nausea, vomiting, heartburn or diarrhea : Denies: flank pain, dysuria or hematuria Musc: Reports: back pain, extremity pain, extremity swelling and joint pain (R hip); Denies: neck pain, joint swelling, joint redness, joint warmth or muscle weakness Skin/Breast: Denies: rash Neuro: Reports: difficulty walking (due to pain in R hip); Denies: headache(s), weakness in extremities or sensory changes PFSH ED PFSH: Medical History Hypertension Hyperthyroidism Myocardial infarction MANOLO (obstructive sleep apnea) Surgical History History of cholecystectomy Open incision Reports waking up during surgery H/O: hysterectomy Reports waking up during surgery Social History Smoking and tobacco/nicotine status: former use of tobacco/nicotine Second hand smoke exposure: No Alcohol intake: never Substance/Drug Use: never Physical Exam Const: COMMON NORMALS: no acute distress, patient oriented x3, no limitations, alert and well nourished GENERAL APPEARANCE: cooperative NUTRITIONAL APPEARANCE: overweight ORIENTATION/CONSCIOUSNESS: Yes awake, Yes oriented to person, Yes oriented to place and Yes oriented to time Resp: COMMON NORMALS: normal respiratory effort and clear to auscultation bilaterally AUSCULTATION: clear to auscultation bilaterally Cardio: COMMON NORMALS: regular rate and regular rhythm RATE: regular rate RHYTHM: regular rhythm GI: COMMON NORMALS: Normal to inspection, nondistended, normoactive bowel sounds present, Soft to palpation, non-tender and no masses PALPATION: Yes Soft to palpation : COMMON NORMALS: Yes no CVA tenderness BLADDER/KIDNEY EXAM: Yes no CVA tenderness Back/Pelvis: COMMON NORMALS: no CVA tenderness LUMBAR SPINE/LOWER BACK: Yes lumbar ROM normal and Yes straight leg raise negative bilaterally PELVIS: Yes buttocks normal and Yes sciatic notch tenderness on the right SACROILIAC JOINTS: Yes SI joint(s) abnormal SI joint details: tender to palpation (R) SACRUM: no tenderness COCCYX: no tenderness Extremity: COMMON NORMALS: capillary refill normal and no joint enlargement NARRATIVE EXTREMITY EXAM: bilateral non-pitting edema; pt wearing compressive stockings GENERAL: Yes normal exam except as noted RIGHT LOWER EXTREMITY: Yes hip joint (TTP posterior R hip joint) Right hip: Yes inspection (normal gross inspection) and Yes neurovascular exam (normal) Neuro: COMMON NORMALS: patient oriented x3, moves all extremities, no focal motor deficits and no sensory deficits noted SENSORIUM/ORIENTATION: Yes alert, Yes oriented to person, Yes oriented to place and Yes oriented to time Skin: COMMON NORMALS: no rashes or lesions noted GENERAL SKIN EXAM: no rashes or lesions noted Course Vital Signs: Vital signs: Vital Signs Temperature 97.8 F 02/23/25 09:01 Pulse Rate 65 02/23/25 11:33 Respiratory Rate 18 02/23/25 09:01 Blood Pressure 176/64 02/23/25 11:33 Pulse Oximetry 91 02/23/25 09:01 Oxygen Delivery Me thod Room Air 02/23/25 09:01 MDM - General Adult Medical Decision Making Patient is an 84-year-old female here for right hip pain over the past few months ever since she fell on it after tripping over a tree root. She also had a complaint of swelling to her legs and weight gain. Was not complaining of shortness of breath or difficulty breathing. She states she has a known DVT to her right lower extremity and has been compliant on her Eliquis. 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 No acute appearing thrombus. GSV is patent Today's workup consisting of XRs to the right hip and pelvis which show degenerative joint disease involving the right hip. She also had CBC, CMP, BNP, trop series, CXR ordered. Her blood work overall is unremarkable. BNP is normal. No evidence of fluid overload or cardiomegaly on CXR. Baseline troponin of 19 with a negative delta. She is hoping to get something to help with the fluid. Will place her on Lasix and have her follow-up with primary care. Return ED precautions discussed. Medical Records I reviewed the patient's medical records. Lab Data I reviewed the patient's lab results. 02/23/25 10:05 02/23/25 10:05 Radiology Impressions Chest X-Ray 02/23/25 09:26 IMPRESSION: 1. No acute cardiopulmonary finding. Hip/Pelvis X-Ray 02/23/25 09:26 IMPRESSION: 1. Moderate DJD of the RIGHT hip. No fracture. Laboratory Results WBC 7.37 10^3/uL (3.29-11.43) 02/23/25 10:05 RBC 4.02 10^6/uL (3.85-5.65) 02/23/25 10:05 Hgb 12.10 g/dL (11.27-16.99) 02/23/25 10:05 Hct 39.0 % (36-47) 02/23/25 10:05 MCV 97.0 fl (85-98) 02/23/25 10:05 MCH 30.1 pg (27-33) 02/23/25 10:05 MCHC 31.0 g/dL (30-55) 02/23/25 10:05 RDW 14.9 % (12.1-15.1) 02/23/25 10:05 Plt Count 276 10^3/cmm (157-399) 02/23/25 10:05 MPV 9.2 fL (7.4-10.4) 02/23/25 10:05 Neut % (Auto) 68.9 % 02/23/25 10:05 Lymph % (Auto) 17.6 % 02/23/25 10:05 [place] % (Auto) 9.9 % 02/23/25 10:05 Eos % (Auto) 2.6 % 02/23/25 10:05 Baso % (Auto) 0.7 % 02/23/25 10:05 Neut # (Auto) 5.08 10^3/uL (1.8-7.7) 02/23/25 10:05 Lymph # (Auto) 1.3 10^3/uL (0.8-4.8) 02/23/25 10:05 [place] # (Auto) 0.7 10^3/uL (0.2-0.9) 02/23/25 10:05 Eos # (Auto) 0.2 10^3/uL (0.0-0.8) 02/23/25 10:05 Baso # (Auto) 0.1 10^3/uL (0.0-0.1) 02/23/25 10:05 Nucleated RBC % (auto) 0 % 02/23/25 10:05 Nucleated RBCs # 0.0 /100WBC 02/23/25 10:05 Sodium 138 mmol/L (136-145) 02/23/25 10:05 Potassium 4.5 mmol/L (3.5-5.1) 02/23/25 10:05 Chloride 102 mmol/L (98-107) 02/23/25 10:05 Carbon Dioxide 24 mmol/L (22-29) 02/23/25 10:05 Anion Gap 16.5 (5-19) 02/23/25 10:05 BUN 13 mg/dL (8-23) 02/23/25 10:05 Creatinine 0.8 mg/dL (0.5-0.9) 02/23/25 10:05 GFR Calculation Not Reportable 02/23/25 10:05 Glucose 93 mg/dL (65-115) 02/23/25 10:05 Calculated Osmolality 286 mOsm/kg (285-295) 02/23/25 10:05 Calcium 9.8 mg/dL (8.5-10.5) 02/23/25 10:05 Total Bilirubin 0.4 mg/dL (0.15-1.2) 02/23/25 10:05 AST 18 U/L (0-32) 02/23/25 10:05 ALT 11 U/L (0-33) 02/23/25 10:05 Alkaline Phosphatase 81 U/L (35-105) 02/23/25 10:05 Troponin T Baseline 19 ng/L (0-10) H 02/23/25 10:05 Troponin T 120 Minute 18.83 ng/L (0-10) H 02/23/25 11:57 Delta Troponin T -0.17 ABS# (0-10) L 02/23/25 11:57 NT-Pro-B Natriuret Pep 221 pg/mL (0-450) 02/23/25 10:05 Total Protein 6.1 g/dL (6.6-8.7) L 02/23/25 10:05 Albumin 3.9 g/dL (3.5-5.2) 02/23/25 10:05 Globulin 2.2 g/dL (1.3-4.6) 02/23/25 10:05 All radiology interpretation(s) finalized by discharge Discharge Plan Discharge Patient Disposition: Home Clinical Impression: Weight gain, Leg edema Degenerative joint disease of right hip Qualifiers: Osteoarthritis type: unspecified Qualified Code(s): M16.11 - Unilateral primary osteoarthritis, right hip Condition: Stable Prescriptions: New furosemide [Lasix] 20 mg tablet 20 mg PO DAILY Qty: 30 0RF potassium chloride [K-Tab] 20 mEq tablet extended release 20 meq PO DAILY Qty: 30 0RF No Action nitroglycerin [Nitrostat] 0.4 mg tablet, sublingual 0.4 mg sublingual Q5M PRN (Reason: chest pain) Rx Instructions: do not exceed 3 doses per episode calcium carbonate-vit D3-min 600 mg-10 mcg (400 unit) tablet 1 tab PO BID Qty: 60 3RF prednisone 10 mg tablet 10 mg PO DAILY PRN (Reason: myalgia/arthralgia) 30 Days Qty: 30 1RF diclofenac potassium 50 mg tablet 50 mg PO BID Qty: 60 5RF atorvastatin 20 mg tablet 20 mg PO QPM Qty: 90 3RF losartan 25 mg tablet 25 mg PO DAILY Qty: 90 3RF duloxetine 60 mg capsule,delayed release(DR/EC) 60 mg PO DAILY Qty: 90 1RF apixaban 2.5 mg tablet 2.5 mg PO BID Qty: 180 1RF hydrocodone-acetaminophen 5-325 mg tablet 1 tab PO Q6H PRN (Reason: pain) 7 Days Qty: 28 0RF docusate sodium 100 mg Tablet 100 mg PO BID Multivitamin 50 Plus Tablet 1 tab PO DAILY ascorbic acid (vitamin C) [Vitamin C] 500 mg Tablet 500 mg PO DAILY levothyroxine 125 mcg tablet 125 mcg PO QAM Discharge Orders: Discharge ED (Routine); Ordered 02/23/25 Ordered By: Renée Roche Referrals: Godwin Diaz DO [Primary Care Provider, Family Practice] Patient Instructions: Patient Portal & Hemant Instructions Activity Restrictions/Additional Instructions: As we discussed, I would like you to follow-up with your primary care provider soon as possible for further evaluation of symptoms. You may return to the emergency department at anytime for any further concerns you may have. Print Language: Bulgarian Coding Level of Care Code ED Bank President for [employer] Hendrix
[2025-02-23 10:10] LABS: Hematocrit 39.0 % (36-47); Hemoglobin 12.10 g/dL (11.27-16.99); Mean Corpuscular HGB Conc 31.0 g/dL (30-55); Mean Corpuscular Hemoglobin 30.1 pg (27-33); Mean Corpuscular Volume 97.0 fl (85-98); Nucleated Red Blood Cells % 0 %; Platelet Count 276 10^3/cmm (157-399); Red Blood Count 4.02 10^6/uL (3.85-5.65); White Blood Count 7.37 10^3/uL (3.29-11.43)
[2025-02-23 10:29] LABS: Troponin(5th) Baseline 19 ng/L (0-10)
[2025-02-23 10:47] LABS: Alanine Aminotransferase 11 U/L (0-33); Albumin Level 3.9 g/dL (3.5-5.2); Alkaline Phosphatase 81 U/L (35-105); Anion Gap 16.5 (5-19); Aspartate Amino Transferase 18 U/L (0-32); Blood Urea Nitrogen 13 mg/dL (8-23); Calcium 9.8 mg/dL (8.5-10.5); Carbon Dioxide 24 mmol/L (22-29); Chloride 102 mmol/L (98-107); Globulin 2.2 g/dL (1.3-4.6); Glucose 93 mg/dL (65-115); NT Pro B Type Natriuretic Pept 221 pg/mL (0-450); Osmolality Calculated 286 mOsm/kg (285-295); Potassium 4.5 mmol/L (3.5-5.1); Sodium 138 mmol/L (136-145); Total Protein 6.1 g/dL (6.6-8.7)
--- NOTE | 2025-02-23 10:57 | PC.PHAR ---
Pt carries current med list with her. Verified otc items verbally since they are not included on med list. Pt has an out dated bottle of Nitrostat and would like to have a new order sent to [facility] if at all possible.
[2025-02-23 11:33] VITALS: BP 176/64; PULSE 65
--- NOTE | 2025-02-23 11:36 | ECG_ITS ---
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 Measurements Intervals [place] Rate: 64 P: -35 DC: 344 QRS: -51 QRSD: 76 T: 55 QT: 374 QTc: 387 Interpretive Statements SINUS RHYTHM WITH SINUS ARRHYTHMIA WITH FIRST DEGREE AV BLOCK LOW QRS VOLTAGE IN PRECORDIAL LEADS [QRS DEFLECTION < 1.0 mV IN CHEST LEADS] LEFT ANTERIOR FASCICULAR BLOCK [QRS AXIS <= -45, QR IN I, RS IN II] POSSIBLE ANTERIOR MYOCARDIAL INFARCTION , OF INDETERMINATE AGE [30 ms Q WAVE IN V3/V4, OR R < 0.2 mV IN V4] Compared to ECG 02/23/2025 10:10:07 First degree AV block now present Left anterior fascicular block now present Supraventricular rhythm no longer present.Left-axis deviation no longer present Myocardial infarct finding still present Electronically Signed On 02-23-2025 18:49:04 TENNIS PROFESSIONAL by Little Chu M.D. [id number] [id number]
[2025-02-23 13:24] VITALS: BP 188/80; PULSE 63; O2SAT 91
== END 2025-02-23 13:32 | disposition home or self-care (01) ==
PROVIDERS: Emergency Provider Physician Assistant; PCP Family Medicine
DX: R63.5 Abnormal weight gain (principal); R60.0 Localized edema; M16.11 Unilateral primary osteoarthritis, right hip; Z87.891 Personal history of nicotine dependence; I10 Essential (primary) hypertension
CPT/HCPCS: 36415; 71045; 73502; 80053; 83880; 84484; 85025; 93005; 99285

== ENCOUNTER → 2025-03-01 14:16 | Outpatient (BNVA) | payer MEDICARE, MEDICAID, SELFPAY | PROVIDERS: PCP Family Medicine; Visit Provider Family Medicine | DX: R60.9 Edema, unspecified (principal) | CPT/HCPCS: 80048 ==

== ENCOUNTER → 2025-03-20 08:39 | Outpatient (BNVA) | payer MEDICARE, MEDICAID, SELFPAY | PROVIDERS: PCP Family Medicine; Visit Provider Physician Assistant | DX: M17.0 Bilateral primary osteoarthritis of knee (principal); Z71.89 Other specified counseling | CPT/HCPCS: 20610; 99213; J3301; J9999 ==